=== PATIENT | male | born 1950 | race Caucasian/White ===

== ENCOUNTER 2022-01-10 23:45 | Observation (INO) | payer MEDICARE, OTHER ==
--- NOTE | 2022-01-11 00:18 | ED ---
Altered Mental Status HPI - General Chief Complaint: Altered Mental Status Stated Complaint: AMS, covid +, fever Source: patient, family Mode of arrival: ambulatory Limitations: no limitations - Related Data Home Medications Medication Instructions Recorded Confirmed Aspirin 81 mg PO DAILY 12/15/14 12/15/14 Cialis(Dose Unknown) 1 tab PO DIRECTED PRN 12/15/14 12/15/14 amLODIPine BESYLATE [Norvasc] 5 mg PO DAILY 12/15/14 12/15/14 Allergies Allergy/AdvReac Type Severity Reaction Status Date / Time No Known Allergies Allergy Verified 01/10/22 23:56 Review of Systems ROS Statement: Those systems with pertinent positive or pertinent negative responses have been documented in the HPI. ROS Other: All systems not noted in ROS Statement are negative. Past Medical History Past Medical History: Hypertension, Sleep Apnea/CPAP/BIPAP Additional Past Medical History / Comment(s): gout History of Any Multi-Drug Resistant Organisms: None Reported Past Surgical History: Orthopedic Surgery Additional Past Surgical History / Comment(s): ORIF rt wrist Past Anesthesia/Blood Transfusion Reactions: Unable to Obtain Past Psychological History: No Psychological Hx Reported Smoking Status: Never smoker Past Alcohol Use History: Occasional Past Drug Use History: None Reported - Past Family History Father Family Medical History: Cancer General Exam Limitations: no limitations Course Vital Signs 01/10/22 23:50 Temperature 98.9 F Pulse Rate 88 Respiratory 20 Rate Blood Pressure 171/76 O2 Sat by Pulse 99 Oximetry Medical Decision Making - Lab Data Result diagrams: 01/11/22 00:44 01/11/22 00:44 Lab Results 01/11/22 01/11/22 01/11/22 Range/Units 00:44 00:44 00:44 WBC 9.9 (3.8-10.6) k/uL RBC 4.94 (4.30-5.90) m/uL Hgb 16.0 (13.0-17.5) gm/dL Hct 47.2 (39.0-53.0) % MCV 95.4 (80.0-100.0) fL MCH 32.3 (25.0-35.0) pg MCHC 33.9 (31.0-37.0) g/dL RDW 12.3 (11.5-15.5) % Plt Count 136 L (150-450) k/uL MPV 9.0 Neutrophils % 76 % Lymphocytes % 11 % Monocytes % 7 % Eosinophils % 3 % Basophils % 2 % Neutrophils # 7.5 (1.3-7.7) k/uL Lymphocytes # 1.1 (1.0-4.8) k/uL Monocytes # 0.7 (0-1.0) k/uL Eosinophils # 0.3 (0-0.7) k/uL Basophils # 0.2 (0-0.2) k/uL PT 10.3 (9.0-12.0) sec INR 0.9 (<1.2) APTT 27.6 (22.0-30.0) sec Sodium 136 L (137-145) mmol/L Potassium 4.3 (3.5-5.1) mmol/L Chloride 99 (98-107) mmol/L Carbon Dioxide 25 (22-30) mmol/L Anion Gap 12 mmol/L BUN 16 (9-20) mg/dL Creatinine 0.96 (0.66-1.25) mg/dL Est GFR (CKD-EPI)AfAm >90 (>60 ml/min/1.73 sqM) Est GFR (CKD-EPI)NonAf 80 (>60 ml/min/1.73 sqM) Glucose 138 H (74-99) mg/dL Plasma Lactic Acid Constantin (0.7-2.0) mmol/L Calcium 9.5 (8.4-10.2) mg/dL Total Bilirubin 0.8 (0.2-1.3) mg/dL AST 42 (17-59) U/L ALT 31 (4-49) U/L Alkaline Phosphatase 64 (38-126) U/L Lactate Dehydrogenase 434 (313-618) U/L Troponin I (0.000-0.034) ng/mL C-Reactive Protein 3.7 H (<1.0) mg/dL Total Protein 7.3 (6.3-8.2) g/dL Albumin 4.3 (3.5-5.0) g/dL Urine Color Urine Appearance (Clear) Urine pH (5.0-8.0) Ur Specific Sherwood (1.001-1.035) Urine Protein (Negative) Urine Glucose (UA) (Negative) Urine Ketones (Negative) Urine Blood (Negative) Urine Nitrite (Negative) Urine Bilirubin (Negative) Urine Urobilinogen (<2.0) mg/dL Ur Leukocyte Esterase (Negative) 01/11/22 01/11/22 01/11/22 Range/Units 00:44 00:44 03:03 WBC (3.8-10.6) k/uL RBC (4.30-5.90) m/uL Hgb (13.0-17.5) gm/dL Hct (39.0-53.0) % MCV (80.0-100.0) fL MCH (25.0-35.0) pg MCHC (31.0-37.0) g/dL RDW (11.5-15.5) % Plt Count (150-450) k/uL MPV Neutrophils % % Lymphocytes % % Monocytes % % Eosinophils % % Basophils % % Neutrophils # (1.3-7.7) k/uL Lymphocytes # (1.0-4.8) k/uL Monocytes # (0-1.0) k/uL Eosinophils # (0-0.7) k/uL Basophils # (0-0.2) k/uL PT (9.0-12.0) sec INR (<1.2) APTT (22.0-30.0) sec Sodium (137-145) mmol/L Potassium (3.5-5.1) mmol/L Chloride (98-107) mmol/L Carbon Dioxide (22-30) mmol/L Anion Gap mmol/L BUN (9-20) mg/dL Creatinine (0.66-1.25) mg/dL Est GFR (CKD-EPI)AfAm (>60 ml/min/1.73 sqM) Est GFR (CKD-EPI)NonAf (>60 ml/min/1.73 sqM) Glucose (74-99) mg/dL Plasma Lactic Acid Constantin 0.7 (0.7-2.0) mmol/L Calcium (8.4-10.2) mg/dL Total Bilirubin (0.2-1.3) mg/dL AST (17-59) U/L ALT (4-49) U/L Alkaline Phosphatase (38-126) U/L Lactate Dehydrogenase (313-618) U/L Troponin I <0.012 (0.000-0.034) ng/mL C-Reactive Protein (<1.0) mg/dL Total Protein (6.3-8.2) g/dL Albumin (3.5-5.0) g/dL Urine Color Yellow Urine Appearance Clear (Clear) Urine pH 5.0 (5.0-8.0) Ur Specific Sherwood 1.019 (1.001-1.035) Urine Protein Negative (Negative) Urine Glucose (UA) Negative (Negative) Urine Ketones Negative (Negative) Urine Blood Negative (Negative) Urine Nitrite Negative (Negative) Urine Bilirubin Negative (Negative) Urine Urobilinogen <2.0 (<2.0) mg/dL Ur Leukocyte Esterase Negative (Negative) Disposition Clinical Impression: Altered mental status, Weakness, TIA (transient ischemic attack) Disposition: ADMITTED IP TO THIS HOSP Condition: Good Referrals: Dacia Rousseau DO [REFERRING] - 1-2 days
[2022-01-11 00:52] LABS: Basophils # (A) 0.2 k/uL (0-0.2); Basophils % (A) 2 %; Eosinophils # (A) 0.3 k/uL (0-0.7); Eosinophils % (A) 3 %; HCT 47.2 % (39.0-53.0); Lymphocytes # (A) 1.1 k/uL (1.0-4.8); Lymphocytes % (A) 11 %; MCH 32.3 pg (25.0-35.0); MCHC 33.9 g/dL (31.0-37.0); MCV 95.4 fL (80.0-100.0); Monocytes # (A) 0.7 k/uL (0-1.0); Monocytes % (A) 7 %; Neutrophils # (A) 7.5 k/uL (1.3-7.7); Neutrophils % (A) 76 %; Platelet Count 136 k/uL (150-450); RBC 4.94 m/uL (4.30-5.90); RDW 12.3 % (11.5-15.5); WBC 9.9 k/uL (3.8-10.6)
[2022-01-11 01:07] LABS: INR 0.9 (<1.2); Partial Thromboplastin Time 27.6 sec (22.0-30.0); Prothrombin Time 10.3 sec (9.0-12.0)
[2022-01-11 01:08] LABS: ALT 31 U/L (4-49); AST 42 U/L (17-59); African American GFR (CKD) >90 (>60 ml/min/1.73 sqM); Albumin 4.3 g/dL (3.5-5.0); Alkaline Phosphatase 64 U/L (38-126); Anion Gap 12 mmol/L; Blood Urea Nitrogen 16 mg/dL (9-20); C Reactive Protein 3.7 mg/dL (<1.0); Calcium 9.5 mg/dL (8.4-10.2); Carbon Dioxide 25 mmol/L (22-30); Chloride 99 mmol/L (98-107); Glucose 138 mg/dL (74-99); LDH 434 U/L (313-618); Non-African American GFR(CKD) 80 (>60 ml/min/1.73 sqM); Potassium 4.3 mmol/L (3.5-5.1); Sodium 136 mmol/L (137-145); Total Bilirubin 0.8 mg/dL (0.2-1.3); Total Protein 7.3 g/dL (6.3-8.2)
--- NOTE | 2022-01-11 01:51 | XR ---
EXAMINATION TYPE: XR chest 2V DATE OF EXAM: 01/11/2022 COMPARISON: NONE HISTORY: Confusion TECHNIQUE: 2 views FINDINGS: Heart and mediastinum are normal. Lungs are clear. Diaphragm is normal. Bony thorax appears normal. IMPRESSION: Normal chest.
[2022-01-11 03:17] LABS: Appearance,Urine Clear (Clear); Bilirubin,Urine Negative (Negative); Blood,Urine Negative (Negative); Color,Urine Yellow; Glucose,Urine (UA) Negative (Negative); Ketones,Urine Negative (Negative); Leukocyte Esterase,Urine Negative (Negative); Nitrite,Urine Negative (Negative); Protein,Urine Negative (Negative); Specific Gravity,Urine 1.019 (1.001-1.035); Urobilinogen,Urine <2.0 mg/dL (<2.0)
[2022-01-11] MEDS ORDERED: NALOXONE 0.4 MG/ML 1 ML VIAL IV PRN (04:16)
[2022-01-11] MEDS ORDERED: MORPHINE SULFATE 4 MG/ML SYRINGE IV PRN (04:16)
[2022-01-11] MEDS ORDERED: ONDANSETRON 4 MG/2 ML VIAL IVP PRN (04:16)
[2022-01-11] MEDS ORDERED: ATORVASTATIN 80 MG TAB PO SCH (05:28)
--- NOTE | 2022-01-11 05:29 | P.HPIM ---
History of Present Illness H&P Date: 01/11/22 The patient is a 71-year-old male with a PMH of hypertension who was brought into the emergency room by family members for confusion and recent diagnosis of COVID. The patient reports that he was in his usual state of health until about 2 days ago when he developed a mild nonproductive cough. The family was subsequently going for a trip when they noticed that the patient had appeared confused. The history was supplemented by the patient's at the bedside. The patient's denied noticing weakness, impaired gait, facial droop, slurring of speech. She reports that she checked him for COVID last night and that multiple tests were positive. The reports that the patient had retur alejandro to baseline in 3-4 hours. The patient reports a mild nonproductive cough but otherwise denied chest discomfort, shortness of breath, fever, chills. Review of systems: Pertinent positives and negatives as discussed in HPI, a complete review of systems was performed and all other systems are negative. Physical examination: General: non toxic, no distress, appears at stated age, obese Derm: no unusual rashes/lesions, warm Head: atraumatic, normocephalic, symmetric Eyes: EOMI, no lid lag, anicteric sclera, pupils equal round reactive to light ENT: Nose and ears atraumatic Neck: No cervical lymphadenopathy, trachea midline, supple Mouth: no lip lesion, mucus membranes moist Cardiovascular: S1S2 reg, no murmur, positive dorsalis pedis pulse bilateral, no edema Lungs: CTA bilateral, no rhonchi, no rales, no accessory muscle use Abdominal: soft, nontender to palpation, no guarding Ext: muscle strength 5 out of 5 in all 4 extremities grossly, no gross muscle atrophy, no contractures, Neuro: CN II-XI grossly intact, no gross focal neuro deficits Psych: Alert, oriented, appropriate affect Assessment/plan Confusion, TIA vs toxic encephalopathy secondary to COVID infection -Neurology consulted -Neuro checks -Continue with aspirin, statin -Neurology consulted -Echocardiogram -Carotid Doppler COVID pneumonia not requiring oxygen therapy at this time -Continue to monitor DVT prophylaxis -Heparin subcu The patient is admitted with an anticipated less than 2 midnight stay for e valuation of TIA CODE STATUS: Full Code Discussed with: Patient Anticipated discharge date: in am Anticipated discharge place: Home Past Medical History Past Medical History: Hypertension, Sleep Apnea/CPAP/BIPAP Additional Past Medical History / Comment(s): gout History of Any Multi-Drug Resistant Organisms: None Reported Past Surgical History: Orthopedic Surgery Additional Past Surgical History / Comment(s): ORIF rt wrist Past Anesthesia/Blood Transfusion Reactions: Unable to Obtain Past Psychological History: No Psychological Hx Reported Smoking Status: Never smoker Past Alcohol Use History: Occasional Past Drug Use History: None Reported - Past Family History Father Family Medical History: Cancer Medications and Allergies Home Medications Medication Instructions Recorded Confirmed Type Aspirin 81 mg PO DAILY 12/15/14 12/15/14 History Cialis(Dose Unknown) 1 tab PO DIRECTED PRN 12/15/14 12/15/14 History amLODIPine BESYLATE [Norvasc] 5 mg PO DAILY 12/15/14 12/15/14 History Allergies Allergy/AdvReac Type Severity Reaction Status Date / Time No Known Allergies Allergy Verified 01/10/22 23:56 Physical Exam Vitals: Vital Signs Temp Pulse Resp BP Pulse Ox 01/11/22 05:25 88 15 144/68 98 01/10/22 23:50 98.9 F 88 20 171/76 99 Intake and Output 01/10/22 01/10/22 01/11/22 14:59 22:59 06:59 Other: Weight 104.326 kg Results CBC & Chem 7: 01/11/22 00:44 01/11/22 00:44 Labs: Abnormal Lab Results - Last 24 Hours (Table) 01/11/22 01/11/22 Range/Units 00:44 00:44 Plt Count 136 L (150-450) k/uL Sodium 136 L (137-145) mmol/L Glucose 138 H (74-99) mg/dL C-Reactive Protein 3.7 H (<1.0) mg/dL
[2022-01-11] MEDS ORDERED: HEPARIN SODIUM,PORCINE/PF 5,000 UNIT/0.5 ML SYRINGE SQ SCH (08:00)
[2022-01-11] MEDS: SODIUM CHLORIDE 0.9% 1,000 ML IV SCH ×2 (08:12→14:18)
--- NOTE | 2022-01-11 08:38 | US ---
EXAMINATION TYPE: US carotid duplex BILAT DATE OF EXAM: 01/11/2022 COMPARISON: NONE CLINICAL HISTORY: 71-year-old male TIA. TECHNIQUE: Carotid duplex ultrasound examination. Indirect Doppler criteria was utilized. FINDINGS: EXAM MEASUREMENTS: RIGHT: Peak Systolic Velocity (PSV) cm/sec ----- Right CCA: 87.7 ----- Right ICA: 79.7 ----- Right ECA: 111.0 ICA/CCA ratio: 0.9 RIGHT: End Diastole cm/sec ----- Right CCA: 16.2 ----- Right ICA: 20.0 ----- Right ECA: 14.0 LEFT: Peak Systolic Velocity (PSV) cm/sec ----- Left CCA: 79.9 ----- Left ICA: 73.3 ----- Left ECA: 106.0 ICA/CCA ratio: 0.9 LEFT: End Diastole cm/sec ----- Left CCA: 16.0 ----- Left ICA: 19.8 ----- Left ECA: 18.5 VERTEBRALS (direction of flow): Right Vertebral: Antegrade Left Vertebral: Antegrade Rhythm: Normal Corporate Communications Manager notes: No significant stenosis, right distal ICA not seen due to deep vessel IMPRESSION: Limited visualization of the distal right ICA. However, along the visualized portions, no hemodynamic ally significant internal carotid artery stenosis is appreciated on either side. Criteria for Assigning % of Stenosis / Diameter reduction (Estimation based on the indirect measurements of the internal carotid artery velocities (ICA PSV). 1. Normal (no stenosis)=ICA PSV < 125 cm/s: ratio < 2.0: ICA EDV<40 cm/s. 2. Less than 50% stenosis=ICA PSV < 125 cm/s: ratio < 2.0: ICA EDV<40 cm/s. 3. 50 to 69% stenosis=ICA PSV of 125 to 230 cm/s: ration 2.0 ? 4.0: ICA EDV 40-100 cm/s. 4. Greater than 70% stenosis to near occlusion= ICA PSV > 230 cm/s: ratio > 4.0: ICA EDV > 100 cm/s. 5. Near occlusion= ICA PSV velocities may be low or undetectable: variable ratio and ICA EDV. 6. Total occlusion=unable to detect flow.
[2022-01-11] MEDS ORDERED: ASPIRIN 325 MG TAB PO SCH (09:00)
[2022-01-11] MEDS ORDERED: amLODIPine 5 MG TAB PO SCH (13:00)
[2022-01-11] MEDS ORDERED: ASPIRIN 81 MG PO SCH (13:00)
--- NOTE | 2022-01-11 14:22 | P.CNNES ---
History of Present Illness Consult date: 01/11/22 Reason for Consult: acute mental status changes History of Present Illness: The patient is a 71-year-old male who is seen in neurologic consultation on January 11, 2022, via teleneurology. History is obtained from the chart, the patient and his who is present at the bedside at the time of the evaluation. The patient was reportedly brought into the emergency department because of confusion. The patient was reportedly diagnosed with Covid 19. The patient himself denies being confused. He reports that he got his directions turned around and was slightly lost. He says he was following his son along a usual route, to [place] [facility] The patient's , who does not appear to have been present at the time, reports that their son stated that the patient was found going the wrong direction. He reportedly was ahead of the son and was expected to arrive at the [facility] first. Apparently the patient's son arrived at the [facility] and waited for his father for a while. He then began to look for his father and found him going the wrong direction. The patient was reportedly confused. There was no reported difficulty with dysarthria or expressive aphasia. There is no reported lateralizing weakness. In regards to his Covid 19 infection, the patient reports having neck pain, chest pain and fever. He reports that today he feels "ready to go home". CT scan of the brain, performed in the emergency department revealed no signs of acute hemorrhage or infarct. CT angiogram was not performed. The patient has no history of stroke. Review of Systems Negative except for that noted in the history of present illness Past Medical History Past Medical History: Hypertension, Sleep Apnea/CPAP/BIPAP Additional Past Medical History / Comment(s): gout History of Any Multi-Drug Resistant Organisms: None Reported Past Surgical History: Orthopedic Surgery Additional Past Surgical History / Comment(s): ORIF rt wrist Past Anesthesia/Blood Transfusion Reactions: Unable to Obtain Past Psychological History: No Psychological Hx Reported Smoking Status: Never smoker Past Alcohol Use History: Occasional Past Drug Use History: None Reported - Past Family History Father Family Medical History: Cancer Medications and Allergies Home Medications Medication Instructions Recorded Confirmed Type Aspirin 81 mg PO DAILY 12/15/14 01/11/22 History amLODIPine BESYLATE [Norvasc] 5 mg PO DAILY 12/15/14 01/11/22 History tadalafiL [Cialis] 20 mg PO DAILY PRN 01/11/22 01/11/22 History Allergies Allergy/AdvReac Type Severity Reaction Status Date / Time No Known Allergies Allergy Verified 01/11/22 10:50 Physical Examination - Vital Signs Vital Signs: Vital Signs Temp Pulse Resp BP Pulse Ox 01/11/22 05:25 88 15 144/68 98 01/10/22 23:50 98.9 F 88 20 171/76 99 Intake and Output 01/10/22 01/11/22 01/11/22 22:59 06:59 14:59 Other: Weight 104.326 kg Gen.: The patient is seated in the bedside chair. He is well-nourished, well- developed and in no acute distress HEENT: Head is atraumatic, normocephalic. Fundus not visualized. There is no scleral icterus. Mucous membranes are moist. Neck: Supple, without carotid bruits Heart: Regular rate and rhythm Lungs: Clear to auscultation Extremities: Without edema line neurological examination Mental status: The patient is awake, alert and oriented 3. His speech is clear. There is no dysarthria or aphasia. Patient is able to follow two-step commands. There is no right/left confusion. Cranial nerves: Pupils are equal at 2 mm and reactive. Visual camp are full to confrontation. Extraocular movements are intact. There is no nystagmus. Facial sensations intact. There is no facial asymmetry. Hearing is grossly intact. Uvula and palate are midline. Shoulder shrug is symmetric. Tongue protrudes midline. Motor: Strength is 5/5 throughout. Coordination: Finger to nose and rapid alternating movements are intact. Sensation: Grossly intact to light touch throughout Deep tendon reflexes: 2+/4+ throughout. Gait: Not assessed Results - Laboratory Findings CBC and BMP: 01/11/22 00:44 01/11/22 00:44 Abnormal Lab Findings: Abnormal Labs 01/11/22 01/11/22 01/11/22 00:44 00:44 06:50 Plt Count 136 L Sodium 136 L Glucose 138 H C-Reactive Protein 3.7 H Coronavirus (PCR) Detected A Assessment and Plan Assessment: 1. Transient, acute mental status changes in a patient with recent diagnosis of Covid 19 infection-possibly related to this versus cerebral ischemia (doubt) 2. Plan: 1. CT angiogram of the head and neck to rule out stenosis or occlusion 2. MRI of brain to rule out stroke or mass as an etiology for confusion 3. 2-D echocardiogram 4. Laboratory evaluation including lipid panel, hemoglobin A1c and TSH 5. PT, OT and speech therapy consultations Thank you for allowing us to participate in the care of this patient Time with Patient: Greater than 30 (spent 40 minutes with patient via telemedicine)
--- NOTE | 2022-01-11 15:14 | CT ---
EXAMINATION TYPE: CT head without contrast CT angio head neck DATE OF EXAM: 01/11/2022 COMPARISON: None HISTORY: 71-year-old male TIA, new onset confusion TECHNIQUE: CT of the head without contrast. Coronal and sagittal reconstructions performed. Subsequen t axial scanning of the head and neck with IV Contrast, patient injected with 65 ML mL of Isovue 370. Coronal and sagittal MIP reconstructions performed. 3-D reconstructions generated on a dedicated [employer] workstation. CT DLP: 1922.5 mGycm Automated exposure control for dose reduction was used. FINDINGS: CT HEAD WITHOUT CONTRAST: Small air-fluid level left maxillary sinus. Scattered mild mucosal thickening throughout the paranasa l sinuses. Mastoid air cells well pneumatized. Mild ventriculomegaly likely secondary to central cerebral atrophy. Bull ratio calculated at 0.39. No evidence for acute intracranial hemorrhage, acute ischemic change, mass, mass effect, midline shif t, or extra-axial fluid collection. No effacement of cerebral sulci and basal subarachnoid cisterns. Manriquez-white matter differentiation is maintained. CTA NECK: Portable and configuration to the aortic arch. Mild atherosclerotic calcification narrowing the orig in of the left vertebral artery. The right vertebral artery slightly more dominant but both vessels a re otherwise patent throughout their course. Right common carotid artery is patent. There is mild atherosclerotic plaque and calcification within the right carotid bulb causing mild, le ss than 25% narrowing by NASCET criteria. Left common carotid artery is patent. Mild atherosclerotic plaque and calcification proximal small right RITU with mild, less than 25% narro wing just above the level of the carotid bulb. There is mild bilateral palatine tonsillar hypertrophy with left-sided calcifications suggesting sequ jarvis of prior infection. Bilateral lingual tonsillar hypertrophy also noted. CTA HEAD: Nondominant left vertebral artery. 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 Hypoplastic A1 segment right anterior cerebral artery also noted. The internal carotid arteries and remainder of the anterior circulation otherwise patent. No aneurysmal change is seen. The dural venous sinuses are patent. Some venous contamination is noted . IMPRESSION: 1. HEAD: MILD TO MODERATE HYDROCEPHALUS, BULL RATIO CALCULATED AT 0.39. CORRELATE TO EXCLUDE A COMPO NENT OF NPH. OTHERWISE, NO ACUTE INTRACRANIAL ABNORMALITY SEEN. 2. 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 HYPOPLASTIC A1 SEGMENT RIGHT RITU. THERE IS NO LARGE VESSEL INTRACRANIAL ARTERIAL OCCLUSION, SIG NIFICANT STENOSIS, OR ANEURYSMAL CHANGE SEEN. 3. ANGIOGRAPHY NECK: MILD, LESS THAN 25% PROXIMAL ICA STENOSIS ON EITHER SIDE. NO HEMODYNAMICALLY SIG NIFICANT STENOSIS. DOMINANT RIGHT VERTEBRAL ARTERY. THERE IS MILD NARROWING AT THE ORIGIN OF THE LEFT VERTEBRAL ARTERY.
--- NOTE | 2022-01-11 15:35 | CA ---
Transthoracic Echo Report Name: Lawrence Estrada Age: 71 Gender: M : 1950 Exam Date: 01/11/2022 08:38 Exam Location: [facility] Ht (in): 63 Wt (lb): 230 Ordering Physician: Allyson Figueroa MD Attending/Referring Phys: Resolution Manager Shannan Box RDCS Procedure CPT: Indications: tia Cardiac Hx: Technical Quality: Technically difficult study Contrast 1: Lumason Total Dose (mL): 4 Contrast 2: Total Dose (mL): MEASUREMENTS (Male / Female) Normal Values 2D ECHO LV Diastolic Diameter PLAX 4.4 cm 4.2 - 5.9 / 3.9 - 5.3 cm LV Systolic Diameter PLAX 2.0 cm IVS Diastolic Thickness 1.6 cm 0.6 - 1.0 / 0.6 - 0.9 cm LVPW Diastolic Thickness 1.5 cm 0.6 - 1.0 / 0.6 - 0.9 cm LV Relative Wall Thickness 0.7 RV Internal Dim ED PLAX 2.4 cm LA Volume 57.7 cm??? 18 - 58 / 22 - 52 cm??? M-MODE Aortic Root Diameter MM 2.9 cm LA Systolic Diameter MM 4.6 cm LA Ao Ratio MM 1.6 AV Cusp Separation MM 2.1 cm DOPPLER AV Peak Velocity 132.9 cm/s AV Peak Gradient 7.1 mmHg LVOT Peak Velocity 92.4 cm/s LVOT Peak Gradient 3.4 mmHg MV Area PHT 3.3 cm??? Mitral E Point Velocity 73.2 cm/s Mitral A Point Velocity 87.2 cm/s Mitral E to A Ratio 0.8 MV Deceleration Time 232.2 ms TR Peak Velocity 197.4 cm/s TR Peak Gradient 15.6 mmHg Right Ventricular Systolic Press 20.6 mmHg FINDINGS Left Ventricle Moderately increased left ventricular wall thickness. Normal left ventricular systolic function with no obvious regional wall motion abnormalities. Left ventricular ejection fraction is estimated at 55-60 %. Right Ventricle Normal right ventricular size. Right Atrium Normal right atrial size. Left Atrium Normal left atrial size. Mitral Valve Mitral annular calcification. Mild mitral regurgitation. Aortic Valve No aortic valve stenosis or regurgitation. Tricuspid Valve Mild tricuspid regurgitation.structurally normal tricuspid valve. Pulmonic Valve Pulmonic valve not well visualized. Pericardium No pericardial effusion. Aorta Normal size aortic root and proximal ascending aorta. CONCLUSIONS Technically difficult study. Normal size and systolic function Mild mitral and tricuspid regurgitation Previewed by: Dr. Virgilio Edmonds MD (Electronically Signed) Final Date: 11 January 2022 15:35
[2022-01-11 16:12] VITALS: BP 158/85; PULSE 61; TEMP 96.6
[2022-01-11 16:37] VITALS: RESP 18
--- NOTE | 2022-01-11 16:51 | P.DS ---
Providers Date of admission: 01/11/22 04:16 Expected date of discharge: 01/11/22 Attending physician: Allyson Figueroa MD Consults: 01/11/22 04:16 Consult Physician Routine Consulting Provider: Melissa Jaimes Consult Reason/Comments: ams Do you want consulting provider notified?: Yes Primary care physician: [facility] Course: The patient is a 71-year-old male with a PMH of hypertension who was brought into the emergency room by family members for confusion and recent diagnosis of COVID. The patient reports that he was in his usual state of health until about 2 days ago when he developed a mild nonproductive cough. The family was subsequently going for a trip when they noticed that the patient had appeared confused. The history was supplemented by the patient's at the bedside. The patient's denied noticing weakness, impaired gait, facial droop, slurring of speech. She reports that she checked him for COVID last night and that multiple tests were positive. The reports that the patient had returned to baseline in 3-4 hours. The patient reports a mild nonproductive cough but otherwise denied chest discomfort, shortness of breath, fever, chills. Neurology was consulted. CT head was negative for acute CVA. However, CT head showed mild to moderate hydrocephalus, correlate to exclude a component of NPH. 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 Echocardiogram showed EF of 55-60% with moderate LVH and no regional wall motion abnormalities. Neurology recommended MRI brain which is unable to be done during this hospitalization. Patient was seen and examined on 01/11/2022. He reported complete resolution of his symptoms. There is a family member at bedside at stated that patient was back to baseline. They did not want to wait until Thursday to obtain MRI brain. The case was discussed with Veronika LEON and Dr. Bowman who reported that MRI brain could be done in the outpatient setting. Patient be discharged home on aspirin 81 mg by mouth and Lipitor 80 mg at bedtime. He is advised to follow-up with his PCP within 1-2 days of discharge. He is advised to obtain MRI brain through his PCP. Patient and family member verbalized understanding of the plan. General: [non toxic], [no distress], [appears at stated age] Derm: [warm], [dry] Head: [atraumatic], [normocephalic], [symmetric] Eyes: [EOMI], [no lid lag], [anicteric sclera] Mouth: [no lip lesion], [mucus membranes moist] Cardiovascular: [S1S2 reg], [no murmur] Lungs: [CTA bilateral], [no rhonchi, no rales] , [no accessory muscle use] Ext: [no gross muscle atrophy], [no edema], [no contractures] Neuro: [no focal neuro deficits] Psych: [Alert], [oriented], [appropriate affect] Discharge diagnosis: Confusion, less likely TIA more likely toxic encephalopathy secondary to COVID- 19 infection COVID-19 pneumonia not requiring oxygen therapy at this time. Pertinent Studies: Chest x-ray Carotid Doppler Echocardiogram CT brain CTA head and neck Patient Condition at Discharge: Good Plan - Discharge Summary New Discharge Prescriptions: New Atorvastatin [Lipitor] 80 mg PO HS #30 tab Continue amLODIPine BESYLATE [Norvasc] 5 mg PO DAILY Aspirin 81 mg PO DAILY tadalafiL [Cialis] 20 mg PO DAILY PRN PRN Reason: E.D. Discharge Medication List Aspirin 81 mg PO DAILY 12/15/14 [History] amLODIPine BESYLATE [Norvasc] 5 mg PO DAILY 12/15/14 [History] Atorvastatin [Lipitor] 80 mg PO HS #30 tab 01/11/22 [Rx] tadalafiL [Cialis] 20 mg PO DAILY PRN 01/11/22 [History] Follow up Appointment(s)/Referral(s): Dacia Rousseau DO [REFERRING] - 1-2 days Activity/Diet/Wound Care/Special Instructions: Diet: Cardiac Follow-up with your PCP within 1-2 days of discharge. Follow-up with your PCP to obtain MRI brain. Take all medications as advised. Come back to the ED for worsening chest pain, shortness of breath, palpitations, lightheadedness, slurred speech, facial droop numbness/weakness/tingling of the extremities. Discharge Disposition: HOME SELF-CARE
== END 2022-01-11 18:46 | disposition home or self-care (01) ==
LOC: EC 23:45 → 6NMEDSUR 01-11 04:16 → 4SSUR 01-11 07:11 → 3SCARD 01-11 07:14
PROVIDERS: ADMIT Internal Medicine; ATTEND Internal Medicine
DX: U07.1 COVID-19 (principal); J12.82 Pneumonia due to coronavirus disease 2019; G91.9 Hydrocephalus, unspecified; R41.82 Altered mental status, unspecified; I10 Essential (primary) hypertension; G47.30 Sleep apnea, unspecified; M10.9 Gout, unspecified; Z98.890 Other specified postprocedural states; Z80.9 Family history of malignant neoplasm, unspecified; Z79.82 Long term (current) use of aspirin; Z79.899 Other long term (current) drug therapy
CPT/HCPCS: 96372; 99285; 36415; 93005; 80053; 83605; 83615; 84484; 85025; 85610; 85730; 86140; 81003; 87635; 71046; 93880; 70496; 70498; G0378 ×3; C8929; Q9950; Q9967; J1644; 93306

== ENCOUNTER → 2022-01-28 | Outpatient (CLI) | payer MEDICARE, OTHER ==
--- NOTE | 2022-01-28 16:08 | MR ---
EXAMINATION TYPE: MR brain wo con DATE OF EXAM: 01/28/2022 2:21 PM COMPARISON: CT head 01/11/2022.. CLINICAL INDICATION:Male, 71 years old with history of R41.0 CONFUSION; TECHNIQUE: Multi planar, multi sequence imaging was performed through the brain including: T1, T2, In version recovery, Diffusion weighted imaging, and gradient echo imaging. No gadolinium was given. FINDINGS: Motion artifact limits evaluation. The gamez-white junctions, ventricular system, and cisterns appear unremarkable. Patchy areas of high T2 signal intensity are seen within the periventricular white matter. Midline structures show no abn ormality. Diffusion-weighted imaging shows no evidence of restricted diffusion. The bone marrow signal is within normal limits. The paranasal sinuses demonstrate mild mucosal thicke anthony. The globes are unremarkable. IMPRESSION: 1. No evidence of intracranial mass or acute/subacute infarct. 2. Nonspecific white matter changes, likely secondary to small vessel ischemic disease.
== END | disposition home or self-care (01) ==
LOC: RADMRIMAIN 13:32
PROVIDERS: ATTEND Family Medicine
DX: R41.0 Disorientation, unspecified (principal)
CPT/HCPCS: 70551

== ENCOUNTER → 2022-10-21 | Outpatient (CLI) | payer MEDICARE ==
--- NOTE | 2022-10-22 09:57 | US ---
EXAMINATION TYPE: US bladder DATE OF EXAM: 10/21/2022 COMPARISON: NONE CLINICAL INDICATION: Male, 72 years old with history of R39.15 URGENCY OF URINATION; Pt states urinar y urgency TECHNIQUE: Multiple sonographic images of the bladder are obtained. FINDINGS: Mild trabeculation of the bladder wall. Mild median lobe hypertrophy changes of the prostate. Post Void Residual Volume: 37.6 mL Color Doppler performed to assess ureteral jets. Bilateral Jets seen: Yes Normal Post Void Residual (less than 50ml): Yes IMPRESSION: 1. Post void residual volume of 38 mL. 2. Trabeculated bladder wall correlate for chronic bladder obstruction.
== END | disposition home or self-care (01) ==
LOC: RADUSWWP 16:02
PROVIDERS: ATTEND Family Medicine
DX: R39.15 Urgency of urination (principal); N32.89 Other specified disorders of bladder
CPT/HCPCS: 76857

== ENCOUNTER → 2023-05-08 | Outpatient (CLI) | payer MEDICARE ==
--- NOTE | 2023-05-09 00:02 | EEG ---
ELECTROENCEPHALOGRAM REPORT CLINICAL HISTORY: This is a 72-year-old gentleman with reported memory issues. The video EEG is obtained to evaluate for seizure epileptiform activity. RELEVANT MEDICATION: Aricept. EEG TYPE: A routine 21-channel EEG with video using the 10/20 electrode placement system. DESCRIPTION: Wakefulness and drowsiness are obtained. During awake state, posterior-dominant rhythm consists of [id number] voltage of 9-10 hertz activity that is well modulated, well sustained. There is no physiological stage 2 sleep architecture. There is no focal slowing. Interictal and ictal is none. ACTIVATION PROCEDURE: Photic stimulation did not evoke a posterior driving response. There is no abnormality during the photic stimulation. Hyperventilation is not performed. CLINICAL INTERPRETATION: This is a normal routine EEG. There is no focal slowing, epileptiform discharges or seizure on the EEG. A normal routine EEG does not rule out underlying epilepsy. Clinical correlation is recommended. FAZAL / ERNESTO: [id number] /
[2023-05-12 07:42] LABS: Arsenic Whole Blood <3 mcg/L (<23); Mercury Whole Blood <5 mcg/L (<OR=10)
== END ==
LOC: NEUROMAIN 08:05
PROVIDERS: ATTEND Psychiatry & Neurology Neurology
DX: F03.90 Unspecified dementia, unspecified severity, without behavioral disturbance, psychotic disturbance, mood disturbance, and anxiety (principal); G93.89 Other specified disorders of brain
CPT/HCPCS: 82175; 82570; 82607; 83655; 83825; 84207; 84425; 84443; 84446; 86780; 95816

== ENCOUNTER → 2023-05-11 | Outpatient (CLI) | payer MEDICARE ==
--- NOTE | 2023-05-12 09:05 | MR ---
EXAMINATION TYPE: MR brain wo/w con DATE OF EXAM: 05/11/2023 3:10 PM COMPARISON: NONE HISTORY: Dementia, attention hippocampal size. CONTRAST: Patient received 10 mL intravenous Gadavist gadolinium contrast. Multiplanar and multispin-echo imaging of the brain was performed . Pre and post contrast enhanced i mages are obtained. The ventricles, basal cisterns and sulci overlying the cerebral convexities are mildly to moderately enlarged. There is evidence of mild periventricular white matter ischemic demyelination. Remote deep white matter insults are also noted. No acute edema is seen on diffusion weighted imaging. There is no evidence for midline shift or mass effect. Acute intracranial hemorrhage or extra-axial collection is not evident. No enhancing lesions are seen. The paranasal sinuses and mastoid air cells are well-aerated. IMPRESSION: Age-related atrophic and chronic small vessel ischemic change. No acute intracranial process at this time. No enhancing lesions are seen.
== END | disposition home or self-care (01) ==
LOC: RADMRIMAIN 14:18
PROVIDERS: ATTEND Psychiatry & Neurology Neurology
DX: F02.A4 Dementia in other diseases classified elsewhere, mild, with anxiety (principal); I67.82 Cerebral ischemia
CPT/HCPCS: 70553; A9585

== ENCOUNTER 2023-06-03 09:35 | Emergency (ER) | payer MEDICARE ==
[2023-06-03 09:44] VITALS: RESP 18
[2023-06-03] MEDS ORDERED: SODIUM CHLORIDE 0.9% 1,000 ML IV STA (10:06)
[2023-06-03] MEDS ORDERED: ONDANSETRON 4 MG/2 ML VIAL IVP STA (10:06)
[2023-06-03] MEDS ORDERED: KETOROLAC 15 MG/ML 1 ML VIAL IVP STA (10:06)
--- NOTE | 2023-06-03 10:16 | ED ---
General Adult HPI - General Chief complaint: Abdominal Pain Stated complaint: FLU like Symp Time Seen by Provider: 06/03/23 09:57 Source: patient, RN notes reviewed Mode of arrival: ambulatory Limitations: no limitations - History of Present Illness Initial comments: This is a 72-year-old male who presents to the emergency department for what he would describe as "flulike symptoms". States that for the last 4 days he has had headaches, nausea, and suprapubic pain. Denies any urinary symptoms. His states that he has had fevers as high as 101F. Denies any coughing, congestion, chest pain, or sick contacts. Additionally, over the last 2 days he has been constipated. States that he usually has a bowel movement each day. He has not taken any meen-[id number]-[id number] stool softeners. - Related Data Home Medications Medication Instructions Recorded Confirmed Aspirin 81 mg PO DAILY 12/15/14 01/11/22 amLODIPine BESYLATE [Norvasc] 5 mg PO DAILY 12/15/14 01/11/22 tadalafiL [Cialis] 20 mg PO DAILY PRN 01/11/22 01/11/22 Previous Rx's Medication Instructions Recorded Atorvastatin [Lipitor] 80 mg PO HS #30 tab 01/11/22 Ketorolac [Toradol] 10 mg PO Q6HR PRN #15 tab 06/03/23 Ondansetron Odt [Zofran Odt] 4 mg PO Q8HR PRN #15 tab 06/03/23 Allergies Allergy/AdvReac Type Severity Reaction Status Date / Time No Known Allergies Allergy Verified 06/03/23 09:43 Review of Systems ROS Statement: Those systems with pertinent positive or pertinent negative responses have been documented in the HPI. ROS Other: All systems not noted in ROS Statement are negative. Past Medical History Past Medical History: Hypertension, Sleep Apnea/CPAP/BIPAP Additional Past Medical History / Comment(s): gout History of Any Multi-Drug Resistant Organisms: None Reported Past Surgical History: Orthopedic Surgery Additional Past Surgical History / Comment(s): ORIF rt wrist Past Anesthesia/Blood Transfusion Reactions: Unable to Obtain Past Psychological History: No Psychological Hx Reported Smoking Status: Never smoker Past Alcohol Use History: Occasional Past Drug Use History: None Reported - Past Family History Father Family Medical History: Cancer General Exam Limitations: no limitations General appearance: alert, in no apparent distress Head exam: Present: atraumatic, normocephalic, normal inspection Respiratory exam: Present: normal lung sounds bilaterally. Absent: respiratory distress, wheezes, rales, rhonchi, stridor Cardiovascular Exam: Present: regular rate, normal rhythm, normal heart sounds. Absent: systolic murmur, diastolic murmur, rubs, gallop, clicks GI/Abdominal exam: Present: soft, normal bowel sounds. Absent: distended, tenderness, guarding, rebound, rigid Neurological exam: Present: alert, oriented X3, CN II-XII intact Psychiatric exam: Present: normal affect, normal mood Skin exam: Present: warm, dry, intact, normal color. Absent: rash Course Vital Signs 06/03/23 06/03/23 09:40 11:37 Temperature 97.8 F 97.9 F Pulse Rate 56 L 67 Respiratory 18 18 Rate Blood Pressure 147/76 160/69 O2 Sat by Pulse 99 97 Oximetry Medical Decision Making - Medical Decision Making This is a 72-year-old male who presents to the emergency department for fevers, nausea, and headaches. Was pt. sent in by a medical professional or institution? @ -No Did you speak to anyone other than the patient for history? @ -His provided the information about how high the fever has gotten. Did you review nursing and triage notes? @ -Yes, and I agree, it is accurate with regards to the patient's symptoms. Were old charts reviewed? @ -No Differential Diagnosis? @ -Differential Fever: Pneumonia, viral URI, endocarditis, myocarditis, pericarditis, otitis, sinusitis, peritonsillar Abscess, retropharyngeal Abscess, epiglottitis, peritonitis, appendicitis, Christiana cystitis, diverticulitis, hepatitis, colitis, UTI, PID, TOA, pyelonephritis, prostatitis, epididymitis, meningitis, encephalit is, pulmonary embolism, CVA, thyroid storm, pancreatitis, adrenal crisis, cavernous sinus thrombosis, this is not meant to be an all-inclusive list. EKG interpreted by me (3pts min.)? @ -Not obtained X-rays interpreted by me (1pt min.)? @ -KUB x-ray obtained. My interpretation identifies no evidence of large or small bowel loop dilation. CT interpreted by me (1pt min.)? @ -Not obtained U/S interpreted by me (1pt. min.)? @ -Not obtained What testing was considered but not performed? (CT, X-rays, U/S, labs)? Why? @ -Discussion of a CT scan of the abdomen/pelvis, however the patient declined because he felt better. What meds were considered but not given? Why? @ -None Did you discuss the management of the patient with other professionals? @ -No Did you reconcile home meds? @ -No Was smoking cessation discussed for >3mins.? @ -No Was critical care preformed (if so, how long)? @ -No Were there social determinants of health that impacted care today? How? (Homelessness, low income, unemployed, alcoholism, drug addiction, transportation, low edu. Level, literacy, decrease access to med. care, prison, rehab)? @ -No Was there de-escalation of care discussed even if they declined? (Discuss DNR or withdrawal of care, Hospice)? @ -No What co-morbidities impacted this encounter? (DM, HTN, Smoking, COPD, CAD, Cancer, CVA, Hep., AIDS, mental health diagnosis, sleep apnea, morbid obesity)? @ -HTN Was patient admitted / discharged? @ -Discharged. Lab work obtained revealing leukocytosis and was otherwise unremarkable. Urinalysis negative for signs of infection. COVID, influenza, and RSV testing were negative. KUB x-ray obtained demonstrating nonspecific bowel gas pattern without evidence for acute process. He remained afebrile in the [facility] department and did not have any abdominal tenderness on exam. Patient treated with IV fluids, Toradol, and Zofran and had significant relief in symptoms. Discussed with the patient that at his age, he is higher risk, and due to the fever with abdominal pain, I advised we proceed with a computed tomography scan of the abdomen and pelvis. However, patient declined because he felt better. He was given strict return parameters and advised to have close follow-up with his primary care provider. Prescription for Zofran and Toradol provided with dosing instructions reviewed. Patient discharged home in stable condition. Undiagnosed new problem with uncertain prognosis? @ -None Drug Therapy requiring intensive monitoring for toxicity (Heparin, Nitro, Insulin, Cardizem)? @ -None Were any procedures done? @ -None Diagnosis/symptom? @ -Nausea, constipation, headache Acute, or Chronic, or Acute on Chronic? @ -Acute Uncomplicated (without systemic symptoms) or Complicated (systemic symptoms)? @ -Uncomplicated Side effects of treatment? @ -None Exacerbation, Progression, or Severe Exacerbation] @ -Not applicable Poses a threat to life or bodily function? @ -Unlikely Return precautions reviewed in depth, the patient is instructed to return to the emergency department with any new, worsening, or concerning symptoms. Patient verbalized understanding. This case was discussed in detail with the attending ED physician, Dr. Chambers. Presentation, findings, and treatment plan discussed in detail as well. - Lab Data Result diagrams: 06/03/23 10:11 06/03/23 10:11 Lab Results 06/03/23 06/03/23 06/03/23 Range/Units 10:11 10:11 10:11 WBC 12.6 H (3.8-10.6) k/uL RBC 4.84 (4.30-5.90) m/uL Hgb 15.0 (13.0-17.5) gm/dL Hct 43.0 (39.0-53.0) % MCV 88.8 (80.0-100.0) fL MCH 31.1 (25.0-35.0) pg MCHC 35.0 (31.0-37.0) g/dL RDW 13.9 (11.5-15.5) % Plt Count 180 (150-450) k/uL MPV 8.7 Neutrophils % 84 % Lymphocytes % 9 % Monocytes % 5 % Eosinophils % 1 % Basophils % 1 % Neutrophils # 10.5 H (1.3-7.7) k/uL Lymphocytes # 1.2 (1.0-4.8) k/uL Monocytes # 0.6 (0-1.0) k/uL Eosinophils # 0.1 (0-0.7) k/uL Basophils # 0.1 (0-0.2) k/uL Sodium 139 (137-145) mmol/L Potassium 4.4 (3.5-5.1) mmol/L Chloride 101 (98-107) mmol/L Carbon Dioxide 28 (22-30) mmol/L Anion Gap 10 mmol/L BUN 14 (9-20) mg/dL Creatinine 0.76 (0.66-1.25) mg/dL Est GFR (CKD-EPI)AfAm >90 (>60 ml/min/1.73 sqM) Est GFR (CKD-EPI)NonAf >90 (>60 ml/min/1.73 sqM) Glucose 109 H (74-99) mg/dL Plasma Lactic Acid Constantin (0.7-2.0) mmol/L Calcium 9.7 (8.4-10.2) mg/dL Total Bilirubin 1.1 (0.2-1.3) mg/dL AST 28 (17-59) U/L ALT 23 (4-49) U/L Alkaline Phosphatase 73 (38-126) U/L Total Protein 7.6 (6.3-8.2) g/dL Albumin 4.2 (3.5-5.0) g/dL Urine Color Light Yellow Urine Appearance Clear (Clear) Urine pH 6.5 (5.0-8.0) Ur Specific Weston 1.018 (1.001-1.035) Urine Protein Negative (Negative) Urine Glucose (UA) Negative (Negative) Urine Ketones Negative (Negative) Urine Blood Negative (Negative) Urine Nitrite Negative (Negative) Urine Bilirubin Negative (Negative) Urine Urobilinogen <2.0 (<2.0) mg/dL Ur Leukocyte Esterase Negative (Negative) Influenza Type A (PCR) (Not Detectd) Influenza Type B (PCR) (Not Detectd) RSV (PCR) (Not Detectd) SARS-CoV-2 (PCR) (Not Detectd) 06/03/23 06/03/23 Range/Units 10:11 10:11 WBC (3.8-10.6) k/uL RBC (4.30-5.90) m/uL Hgb (13.0-17.5) gm/dL Hct (39.0-53.0) % MCV (80.0-100.0) fL MCH (25.0-35.0) pg MCHC (31.0-37.0) g/dL RDW (11.5-15.5) % Plt Count (150-450) k/uL MPV Neutrophils % % Lymphocytes % % Monocytes % % Eosinophils % % Basophils % % Neutrophils # (1.3-7.7) k/uL Lymphocytes # (1.0-4.8) k/uL Monocytes # (0-1.0) k/uL Eosinophils # (0-0.7) k/uL Basophils # (0-0.2) k/uL Sodium (137-145) mmol/L Potassium (3.5-5.1) mmol/L Chloride (98-107) mmol/L Carbon Dioxide (22-30) mmol/L Anion Gap mmol/L BUN (9-20) mg/dL Creatinine (0.66-1.25) mg/dL Est GFR (CKD-EPI)AfAm (>60 ml/min/1.73 sqM) Est GFR (CKD-EPI)NonAf (>60 ml/min/1.73 sqM) Glucose (74-99) mg/dL Plasma Lactic Acid Constantin 0.7 (0.7-2.0) mmol/L Calcium (8.4-10.2) mg/dL Total Bilirubin (0.2-1.3) mg/dL AST (17-59) U/L ALT (4-49) U/L Alkaline Phosphatase (38-126) U/L Total Protein (6.3-8.2) g/dL Albumin (3.5-5.0) g/dL Urine Color Urine Appearance (Clear) Urine pH (5.0-8.0) Ur Specific Weston (1.001-1.035) Urine Protein (Negative) Urine Glucose (UA) (Negative) Urine Ketones (Negative) Urine Blood (Negative) Urine Nitrite (Negative) Urine Bilirubin (Negative) Urine Urobilinogen (<2.0) mg/dL Ur Leukocyte Esterase (Negative) Influenza Type A (PCR) Not Detected (Not Detectd) Influenza Type B (PCR) Not Detected (Not Detectd) RSV (PCR) Not Detected (Not Detectd) SARS-CoV-2 (PCR) Not Detected (Not Detectd) - Radiology Data Radiology results: report reviewed, image reviewed Disposition Clinical Impression: Constipation, Headache, Nausea Disposition: HOME SELF-CARE Instructions (If sedation given, give patient instructions): Acute Headache (ED), Acute Nausea and Vomiting (ED) Additional Instructions: Return to the emergency department with any new, worsening, or concerning symptoms. Take the Toradol with Tylenol as needed for pain relief. If you choos e to take the Toradol, do not take any other anti-inflammatories such as ibuprofen, take one or the other. You can take the Zofran up to every 8 hours as needed for nausea and vomiting. Slowly advance your diet as tolerated and remain well hydrated. You can take over the counter stool softeners such as MiraLAX to help with the constipation as well. Follow up with your primary care provider in 1-2 days. Prescriptions: Ketorolac [Toradol] 10 mg PO Q6HR PRN #15 tab PRN Reason: Pain Ondansetron Odt [Zofran Odt] 4 mg PO Q8HR PRN #15 tab PRN Reason: Nausea And Vomiting Is patient prescribed a controlled substance at d/c from ED?: No Referrals: Ana Villatoro MD [Primary Care Provider] - 1-2 days
[2023-06-03 10:38] LABS: Basophils # (A) 0.1 k/uL (0-0.2); Basophils % (A) 1 %; Eosinophils # (A) 0.1 k/uL (0-0.7); Eosinophils % (A) 1 %; Lymphocytes # (A) 1.2 k/uL (1.0-4.8); Lymphocytes % (A) 9 %; MCH 31.1 pg (25.0-35.0); MCV 88.8 fL (80.0-100.0); Mean Platelet Volume 8.7; Monocytes # (A) 0.6 k/uL (0-1.0); Monocytes % (A) 5 %; Neutrophils # (A) 10.5 k/uL (1.3-7.7); Neutrophils % (A) 84 %; Platelet Count 180 k/uL (150-450); RBC 4.84 m/uL (4.30-5.90); RDW 13.9 % (11.5-15.5); WBC 12.6 k/uL (3.8-10.6)
[2023-06-03 10:42] LABS: Appearance,Urine Clear (Clear); Bilirubin,Urine Negative (Negative); Blood,Urine Negative (Negative); Color,Urine Light Yellow; Glucose,Urine (UA) Negative (Negative); Ketones,Urine Negative (Negative); Leukocyte Esterase,Urine Negative (Negative); Nitrite,Urine Negative (Negative); PH, Urine 6.5 (5.0-8.0); Protein,Urine Negative (Negative); Specific Gravity,Urine 1.018 (1.001-1.035); Urobilinogen,Urine <2.0 mg/dL (<2.0)
--- NOTE | 2023-06-03 10:59 | XR ---
EXAMINATION TYPE: XR KUB DATE OF EXAM: 06/03/2023 10:54 AM CLINICAL INDICATION:Male, 72 years old with history of abdominal pain; COMPARISON: 06/03/2023. TECHNIQUE: One radiographic view of the abdomen was obtained. FINDINGS: The bowel gas pattern is nonspecific without dilated loops of small or large bowel. There i s no evidence for organomegaly or pneumoperitoneum. The osseous structures are intact. No abnormal calcifications are present. Fecal material and gas are demonstrated throughout the colon and rectum. IMPRESSION: Nonspecific bowel gas pattern without radiographic evidence for acute process.
[2023-06-03 11:14] LABS: ALT 23 U/L (4-49); AST 28 U/L (17-59); African American GFR (CKD) >90 (>60 ml/min/1.73 sqM); Albumin 4.2 g/dL (3.5-5.0); Alkaline Phosphatase 73 U/L (38-126); Anion Gap 10 mmol/L; Blood Urea Nitrogen 14 mg/dL (9-20); Calcium 9.7 mg/dL (8.4-10.2); Carbon Dioxide 28 mmol/L (22-30); Chloride 101 mmol/L (98-107); Glucose 109 mg/dL (74-99); Non-African American GFR(CKD) >90 (>60 ml/min/1.73 sqM); Potassium 4.4 mmol/L (3.5-5.1); Sodium 139 mmol/L (137-145); Total Bilirubin 1.1 mg/dL (0.2-1.3); Total Protein 7.6 g/dL (6.3-8.2)
[2023-06-03] MEDS ORDERED: IBUPROFEN 600 MG STARTER PACK 4 TAB BTL PO STA (11:33)
[2023-06-03] MEDS ORDERED: ONDANSETRON 4 MG ODT STARTER PACK 2 TAB BTL PO STA (11:33)
[2023-06-03 12:06] VITALS: BP 160/69; PULSE 67; TEMP 97.9
== END 2023-06-03 11:54 | disposition home or self-care (01) ==
LOC: EC 09:35
DX: K59.00 Constipation, unspecified (principal); R51.9 Headache, unspecified; R11.0 Nausea; I10 Essential (primary) hypertension; Z20.822 Contact with and (suspected) exposure to COVID-19; Z79.82 Long term (current) use of aspirin; Z79.899 Other long term (current) drug therapy
CPT/HCPCS: 99284; 96374; 96375; 96361; 36415; 80053; 83605; 85025; 81003; 87636; 74018; J2405; J1885; S0119

== ENCOUNTER 2023-10-03 14:51 | Emergency (ER) | payer MEDICARE ==
[2023-10-03 15:46] VITALS: RESP 18
[2023-10-03 16:35] LABS: Basophils % (A) 0 %; Eosinophils # (A) 0.2 k/uL (0-0.7); Eosinophils % (A) 1 %; HGB 12.7 gm/dL (13.0-17.5); Lymphocytes # (A) 1.3 k/uL (1.0-4.8); Lymphocytes % (A) 11 %; MCH 28.6 pg (25.0-35.0); MCHC 32.5 g/dL (31.0-37.0); MCV 87.9 fL (80.0-100.0); Mean Platelet Volume 7.9; Monocytes # (A) 0.7 k/uL (0-1.0); Monocytes % (A) 6 %; Neutrophils # (A) 9.7 k/uL (1.3-7.7); Neutrophils % (A) 81 %; Platelet Count 210 k/uL (150-450); RBC 4.43 m/uL (4.30-5.90); RDW 14.2 % (11.5-15.5)
[2023-10-03 16:52] LABS: ALT 19 U/L (4-49); AST 28 U/L (17-59); African American GFR (CKD) >90 (>60 ml/min/1.73 sqM); Albumin 3.6 g/dL (3.5-5.0); Alkaline Phosphatase 85 U/L (38-126); Amylase 43 U/L (30-110); Anion Gap 5 mmol/L; Blood Urea Nitrogen 18 mg/dL (9-20); Calcium 9.6 mg/dL (8.4-10.2); Carbon Dioxide 29 mmol/L (22-30); Chloride 103 mmol/L (98-107); Glucose 93 mg/dL (74-99); Lipase 39 U/L (23-300); Non-African American GFR(CKD) 88 (>60 ml/min/1.73 sqM); Potassium 4.3 mmol/L (3.5-5.1); Sodium 137 mmol/L (137-145); Total Protein 7.3 g/dL (6.3-8.2)
--- NOTE | 2023-10-03 16:52 | ED ---
Abdominal Pain HPI - General Chief Complaint: Abdominal Pain Stated Complaint: Abd pain Time Seen by Provider: 10/03/23 16:18 Source: patient, family Mode of arrival: ambulatory Limitations: altered mental status - History of Present Illness Initial Comments: 72-year-old male presenting to the ED with complaints of abdominal pain. Patient reports that since June, has had intermittent abdominal pain which has been diffuse in nature. Reports that he saw his PCP for this, who started him on Pepcid which patient reports provided no significant relief. Over the last few days, patient reports pain seeming to worsen prompting presentation to the ED for further evaluation. Denies dysuria, hematuria, frequency, urgency, diarrhea, constipation, blood in the stool, melena, chest pain, shortness of breath, fever, chills, unexplained weight loss. No other complaints at this time. Patient's notes that the patient has some dementia. She does state that he is lost 20 pounds unexpectedly over the past few months. - Related Data Home Medications Medication Instructions Recorded Confirmed Aspirin 81 mg PO DAILY 12/15/14 01/11/22 amLODIPine BESYLATE [Norvasc] 5 mg PO DAILY 12/15/14 01/11/22 tadalafiL [Cialis] 20 mg PO DAILY PRN 01/11/22 01/11/22 Previous Rx's Medication Instructions Recorded Atorvastatin [Lipitor] 80 mg PO HS #30 tab 01/11/22 Ketorolac [Toradol] 10 mg PO Q6HR PRN #15 tab 06/03/23 Ondansetron Odt [Zofran Odt] 4 mg PO Q8HR PRN #15 tab 06/03/23 Acetaminophen Tab [Tylenol] 500 mg PO Q6H #30 tablet 10/03/23 Allergies Allergy/AdvReac Type Severity Reaction Status Date / Time No Known Allergies Allergy Verified 06/03/23 09:43 Review of Systems ROS Statement: Those systems with pertinent positive or pertinent negative responses have been documented in the HPI. ROS Other: All systems not noted in ROS Statement are negative. Past Medical History Past Medical History: Dementia, Hypertension, Sleep Apnea/CPAP/BIPAP Additional Past Medical History / Comment(s): gout History of Any Multi-Drug Resistant Organisms: None Reported Past Surgical History: Orthopedic Surgery Additional Past Surgical History / Comment(s): ORIF rt wrist Past Anesthesia/Blood Transfusion Reactions: Unable to Obtain Past Psychological History: No Psychological Hx Reported Smoking Status: Never smoker Past Alcohol Use History: Occasional Past Drug Use History: None Reported - Past Family History Father Family Medical History: Cancer General Exam Limitations: altered mental status General appearance: alert Eye exam: Present: normal appearance Neck exam: Present: normal inspection Respiratory exam: Present: normal lung sounds bilaterally Cardiovascular Exam: Present: regular rate GI/Abdominal exam: Present: soft, normal bowel sounds. Absent: distended, tenderness, guarding, rebound, rigid Extremities exam: Present: normal inspection Neurological exam: Present: alert, oriented X3 Skin exam: Present: warm, dry Course Vital Signs 10/03/23 10/03/23 15:31 17:35 Temperature 97.8 F Pulse Rate 68 58 L Respiratory 18 18 Rate Blood Pressure 142/79 131/76 O2 Sat by Pulse 100 Oximetry Medical Decision Making - Medical Decision Making Was pt. sent in by a medical professional or institution (, PA, DIRECTOR OF NEUROLOGY, urgent care, hospital, or [facility]...) When possible be specific @ -No Did you speak to anyone other than the patient for history (EMS, parent, family, police, friend...)? What history was obtained from this source @ -No Did you review nursing and triage notes (agree or disagree)? Why? @ -I reviewed and agree with nursing and triage notes Were old charts reviewed (outside hosp., previous admission, EMS record, old EKG, old radiological studies, urgent care reports/EKG's, [facility] records)? Report findings @ -No old charts were reviewed Differential Diagnosis (chest pain, altered mental status, abdominal pain women, abdominal pain men, vaginal bleeding, weakness, fever, dyspnea, syncope, headache, dizziness, GI bleed, back pain, seizure, CVA, palpatations, mental health, musculoskeletal)? @ -Differential Musculoskeletal Muscular strain, contusion, ligament sprain, fracture, arthritis, septic arthr itis, bursitis, cellulitis, muscle spasm, nerve compression, DVT, arterial occlusion, herpes zoster, electrolyte abnormality, tumor.... This is not meant to be in all inclusive list EKG interpreted by me (3pts min.). @ -EKG interpreted me showing a sinus rhythm at [address]-T wave changes. CO 171, QRS 85, QT/QTc 403/400. X-rays interpreted by me (1pt min.). @ -None CT interpreted by me (1pt min.). @ -CT abdomen pelvis interpreted me showing multiple hypodense hepatic masses, in the mid ascending colon segment with irregular peripheral wall thickening concerning for neoplasm, numerous large soft tissue densities within the me sentery as well as retroperitoneum consistent with lymphadenopathy, diffuse mesenteric edema, couple tiny nodules in the right lung base. U/S interpreted by me (1pt. min.). @ -None done What testing was considered but not performed or refused? (CT, X-rays, U/S, labs)? Why? @ -None What meds were considered but not given or refused? Why? @ -None Did you discuss the management of the patient with other professionals (professionals i.e. , PA, DIRECTOR OF NEUROLOGY, lab, RT, psych nurse, director of social work, flour tester, teacher, human resources officer, rn case mgr)? Give summary @ -Case discussed with Dr. Desai, who advises outpatient follow up Was smoking cessation discussed for >3mins.? @ -No Was critical care preformed (if so, how long)? @ -No Were there social determinants of health that impacted care today? How? (Homelessness, low income, unemployed, alcoholism, drug addiction, transportation, low edu. Level, literacy, decrease access to med. care, detention, rehab)? @ -No Was there de-escalation of care discussed even if they declined (Discuss DNR or withdrawal of care, Hospice)? DNR status @ -No What co-morbidities impacted this encounter? (DM, HTN, Smoking, COPD, CAD, Cancer, CVA, ARF, Chemo, Hep., AIDS, mental health diagnosis, sleep apnea, morbid obesity)? @ -None Was patient admitted / discharged? Hospital course, mention meds given and route, prescriptions, significant lab abnormalities, going to OR and other pertinent info. @ -Discharge 72-year-old male presented to the ED with complaints of diffuse abdominal pain since June seeming to worsen today. Laboratory studies reviewed. CBC CMP UA largely unremarkable. CT abdomen pelvis does show multiple findings concerning for neoplasm/metastasis. At this time pain is well-controlled. Patient tolerating oral intake. Patient discharged home in stable condition with referrals to GI and oncology. Discussed strict return precautions with the patient's who verbalized agreement. Undiagnosed new problem with uncertain prognosis? @ -No Drug Therapy requiring intensive monitoring for toxicity (Heparin, Nitro, Insulin, Cardizem)? @ -No Were any procedures done? @ -No Diagnosis/symptom? @ -Abdominal pain Acute, or Chronic, or Acute on Chronic? @ -Acute on chronic Uncomplicated (without systemic symptoms) or Complicated (systemic symptoms)? @ -Complicated Side effects of treatment? @ -No Exacerbation, Progression, or Severe Exacerbation? @ -No Poses a threat to life or bodily function? How? (Chest pain, USA, VT, pneumonia, PE, COPD, DKA, ARF, appy, cholecystitis, CVA, Diverticulitis, Homicidal, Suicidal, threat to staff... and all critical care pts) @ -Possibly however unlikely - Lab Data Result diagrams: 10/03/23 16:28 10/03/23 16:28 Lab Results 10/03/23 10/03/23 10/03/23 Range/Units 16:28 16:28 16:28 WBC 12.0 H (3.8-10.6) k/uL RBC 4.43 (4.30-5.90) m/uL Hgb 12.7 L (13.0-17.5) gm/dL Hct 39.0 (39.0-53.0) % MCV 87.9 (80.0-100.0) fL MCH 28.6 (25.0-35.0) pg MCHC 32.5 (31.0-37.0) g/dL RDW 14.2 (11.5-15.5) % Plt Count 210 (150-450) k/uL MPV 7.9 Neutrophils % 81 % Lymphocytes % 11 % Monocytes % 6 % Eosinophils % 1 % Basophils % 0 % Neutrophils # 9.7 H (1.3-7.7) k/uL Lymphocytes # 1.3 (1.0-4.8) k/uL Monocytes # 0.7 (0-1.0) k/uL Eosinophils # 0.2 (0-0.7) k/uL Basophils # 0.0 (0-0.2) k/uL Sodium 137 (137-145) mmol/L Potassium 4.3 (3.5-5.1) mmol/L Chloride 103 (98-107) mmol/L Carbon Dioxide 29 (22-30) mmol/L Anion Gap 5 mmol/L BUN 18 (9-20) mg/dL Creatinine 0.84 (0.66-1.25) mg/dL Est GFR (CKD-EPI)AfAm >90 (>60 ml/min/1.73 sqM) Est GFR (CKD-EPI)NonAf 88 (>60 ml/min/1.73 sqM) Glucose 93 (74-99) mg/dL Plasma Lactic Acid Constantin 0.8 (0.7-2.0) mmol/L Calcium 9.6 (8.4-10.2) mg/dL Total Bilirubin 1.0 (0.2-1.3) mg/dL AST 28 (17-59) U/L ALT 19 (4-49) U/L Alkaline Phosphatase 85 (38-126) U/L Total Protein 7.3 (6.3-8.2) g/dL Albumin 3.6 (3.5-5.0) g/dL Amylase 43 (30-110) U/L Lipase 39 (23-300) U/L Urine Color Urine Appearance (Clear) Urine pH (5.0-8.0) Ur Specific [place] (1.001-1.035) Urine Protein (Negative) Urine Glucose (UA) (Negative) Urine Ketones (Negative) Urine Blood (Negative) Urine Nitrite (Negative) Urine Bilirubin (Negative) Urine Urobilinogen (<2.0) mg/dL Ur Leukocyte Esterase (Negative) 10/03/23 Range/Units 18:13 WBC (3.8-10.6) k/uL RBC (4.30-5.90) m/uL Hgb (13.0-17.5) gm/dL Hct (39.0-53.0) % MCV (80.0-100.0) fL MCH (25.0-35.0) pg MCHC (31.0-37.0) g/dL RDW (11.5-15.5) % Plt Count (150-450) k/uL MPV Neutrophils % % Lymphocytes % % Monocytes % % Eosinophils % % Basophils % % Neutrophils # (1.3-7.7) k/uL Lymphocytes # (1.0-4.8) k/uL Monocytes # (0-1.0) k/uL Eosinophils # (0-0.7) k/uL Basophils # (0-0.2) k/uL Sodium (137-145) mmol/L Potassium (3.5-5.1) mmol/L Chloride (98-107) mmol/L Carbon Dioxide (22-30) mmol/L Anion Gap mmol/L BUN (9-20) mg/dL Creatinine (0.66-1.25) mg/dL Est GFR (CKD-EPI)AfAm (>60 ml/min/1.73 sqM) Est GFR (CKD-EPI)NonAf (>60 ml/min/1.73 sqM) Glucose (74-99) mg/dL Plasma Lactic Acid Constantin (0.7-2.0) mmol/L Calcium (8.4-10.2) mg/dL Total Bilirubin (0.2-1.3) mg/dL AST (17-59) U/L ALT (4-49) U/L Alkaline Phosphatase (38-126) U/L Total Protein (6.3-8.2) g/dL Albumin (3.5-5.0) g/dL Amylase (30-110) U/L Lipase (23-300) U/L Urine Color Yellow Urine Appearance Clear (Clear) Urine pH 5.5 (5.0-8.0) Ur Specific [place] 1.045 H (1.001-1.035) Urine Protein Negative (Negative) Urine Glucose (UA) Negative (Negative) Urine Ketones Negative (Negative) Urine Blood Negative (Negative) Urine Nitrite Negative (Negative) Urine Bilirubin Negative (Negative) Urine Urobilinogen <2.0 (<2.0) mg/dL Ur Leukocyte Esterase Negative (Negative) Disposition Clinical Impression: Abdominal pain Disposition: HOME SELF-CARE Condition: Good Additional Instructions: Please return to the Emergency Department if symptoms worsen or any other concerns. Please follow-up with your PCP and GI/oncology. Prescriptions: Acetaminophen Tab [Tylenol] 500 mg PO Q6H #30 tablet Is patient prescribed a controlled substance at d/c from ED?: No Referrals: Ana Villatoro MD [Primary Care Provider] - 1-2 days Gabe Byrne [STAFF PHYSICIAN] - 1-2 days Bianca Dc MD [STAFF PHYSICIAN] - 1-2 days Iris Rebollar MD [STAFF PHYSICIAN] - 1-2 days Time of Disposition: 21:32
[2023-10-03] MEDS: KETOROLAC 15 MG/ML 1 ML VIAL IVP STA (17:33)
[2023-10-03] MEDS: SODIUM CHLORIDE 0.9% 1,000 ML IV STA (17:35)
[2023-10-03 18:18] LABS: Appearance,Urine Clear (Clear); Bilirubin,Urine Negative (Negative); Blood,Urine Negative (Negative); Color,Urine Yellow; Glucose,Urine (UA) Negative (Negative); Ketones,Urine Negative (Negative); Leukocyte Esterase,Urine Negative (Negative); Nitrite,Urine Negative (Negative); PH, Urine 5.5 (5.0-8.0); Protein,Urine Negative (Negative); Specific Gravity,Urine 1.045 (1.001-1.035); Urobilinogen,Urine <2.0 mg/dL (<2.0)
--- NOTE | 2023-10-03 19:04 | CT ---
EXAMINATION TYPE: CT abdomen pelvis w con CT DLP: 1050.2 mGycm, Automated exposure control for dose reduction was used. DATE OF EXAM: 10/03/2023 5:34 PM COMPARISON: None. CLINICAL INDICATION:Male, 72 years old with history of abdominal pain; Abdominal pain x 3 weeks, n/v/ d x 1 day. TECHNIQUE: Axial CT of the abdomen and pelvis. Sagittal and coronal reformats were created on a [employer] workstation. Contrast used:100 cc mL of Isovue 300 with IV Contrast, (none if empty) Oral contrast used: without Oral Contrast (none if empty) FINDINGS: LOWER CHEST: Dependent opacities in the lungs most suggestive of minor atelectasis. Tiny 3 mm nodule seen in the midright lung, and 4 mm nodule in the right lower lobe laterally. Heart size appears uppe r limits of normal. Mild/moderate coronary artery calcifications. No pericardial effusion. ABDOMEN LIVER: Multiple vaguely marginated relatively hypodense solid-appearing lesions throughout the liver, perhaps 20-30 in total, highly concerning for metastases. Portal vein is enhancing. GALLBLADDER AND BILE DUCTS: Unremarkable gallbladder. No biliary ductal dilatation. PANCREAS: Fatty infiltration throughout the pancreas. No gross identifiable pancreatic mass. SPLEEN: Unremarkable. ADRENAL GLANDS: No evidence of mass.. KIDNEYS AND URETERS: Kidneys enhance symmetrically. There is no evidence of renal mass, hydronephrosi s, or visible calculi. Bilateral parapelvic cysts. PELVIS BLADDER: Mildly distended, otherwise unremarkable REPRODUCTIVE: Unremarkable. ABDOMEN & PELVIS STOMACH AND BOWEL: Stomach and small bowel are nondistended, no evidence of obstruction. Small ovoi d radiodensity in the gastric lumen likely medication tablet. There is some fluid seen in the stomac h and duodenal sweep. Evaluation of small bowel is limited without enteric contrast. No clear evidenc e of a small bowel mass however some loops appear clustered or matted together, especially in the rig ht pelvis, and malignant/metastatic involvement cannot be excluded. What appears to be appendix looks to be normal. There is moderate stool throughout the colon and some areas of nondistention, limiting assessment. The cecum appears grossly unremarkable. In the mid ascending colon, there is a segment approximately 6.5 cm in length but shows some irregular peripheral wall thickening and mild luminal narrowing, rais ing concern for neoplasm. From the hepatic flexure onwards, there is moderate stool and some gas seen throughout the colon. Distal colon appears relatively collapsed. PERITONEUM/RETROPERITONEUM: No pneumoperitoneum is seen. There is diffuse haziness throughout the m esentery suggesting edema. No significant quantity or drainable ascites seen.. There are numerous enl arged soft tissue densities throughout the mesentery as well as the retroperitoneum, consistent with lymphadenopathy which is probably metastatic. Some examples: * A right upper quadrant/periportal conglomerate image 34 series 201 is 4 x 3.2 cm. * A C-shaped mesenteric lymph node conglomerate image 40, 5.7 x 3.5 cm. * One of many enlarged nodes in the anterior mesentery image 48 is 2 x 1.7 cm. * Mesenteric wendy conglomerate in the right midabdomen image 49 is 4.6 x 1.9 cm. * Anterior to the IVC image 56 is 3.2 x 2.4 cm. Other examples are possible. VASCULATURE: Mild atherosclerotic calcifications are present throughout the abdominal aorta and its b ranches. No evidence of aortic aneurysm. Portal veins are enhancing. Splenic vein is patent. LYMPH NODES: See description above. SOFT TISSUE/ABDOMINAL WALL: Moderate-sized right and small to moderate sized left fat-containing ingu inal hernias. Small fat-containing umbilical hernia. MUSCULOSKELETAL: No acute osseous anomalies. Moderate diffuse chronic degenerative changes. No evide nce of destructive or sclerotic bony lesion. IMPRESSION: 1. Multiple hypodense hepatic masses, highly concerning for metastases. 2. In the mid ascending colon, there is a segment with irregular peripheral wall thickening concerni ng for neoplasm. 3. Numerous enlarged soft tissue densities throughout the mesentery as well as the retroperitoneum, consistent with lymphadenopathy, very likely metastatic. 4. Diffuse mesenteric edema. 5. A couple tiny nodules in the imaged right lung base. Recommend correlation with complete CT chest when appropriate for staging purposes.
[2023-10-03] MEDS: ACET/COD 300 MG/30 MG STARTER PACK 6 TAB BTL PO STA (21:41)
[2023-10-03 22:11] VITALS: BP 151/94; PULSE 63
[2023-10-03 22:12] VITALS: TEMP 98.5
== END 2023-10-03 22:39 | disposition home or self-care (01) ==
LOC: EC 14:51
DX: R10.9 Unspecified abdominal pain (principal)
CPT/HCPCS: 36415; 93005; 80053; 82150; 83605; 83690; 85025; 81003; 74177; 99284; 96374; 96361 ×4; J1885; Q9967

== ENCOUNTER 2023-10-07 14:29 | Observation (INO) | payer MEDICARE ==
[2023-10-07 15:01] LABS: Basophils # (A) 0.1 k/uL (0-0.2); Basophils % (A) 0 %; Eosinophils # (A) 0.1 k/uL (0-0.7); Eosinophils % (A) 1 %; HCT 40.7 % (39.0-53.0); HGB 13.2 gm/dL (13.0-17.5); Lymphocytes % (A) 7 %; MCH 28.6 pg (25.0-35.0); MCHC 32.4 g/dL (31.0-37.0); MCV 88.4 fL (80.0-100.0); Mean Platelet Volume 7.9; Monocytes # (A) 0.6 k/uL (0-1.0); Monocytes % (A) 5 %; Neutrophils # (A) 11.5 k/uL (1.3-7.7); Neutrophils % (A) 86 %; Platelet Count 230 k/uL (150-450); RBC 4.61 m/uL (4.30-5.90); RDW 14.4 % (11.5-15.5); WBC 13.3 k/uL (3.8-10.6)
[2023-10-07 15:15] LABS: ALT 18 U/L (4-49); AST 25 U/L (17-59); African American GFR (CKD) >90 (>60 ml/min/1.73 sqM); Albumin 3.5 g/dL (3.5-5.0); Alkaline Phosphatase 78 U/L (38-126); Amylase 42 U/L (30-110); Anion Gap 3 mmol/L; Blood Urea Nitrogen 13 mg/dL (9-20); Calcium 9.3 mg/dL (8.4-10.2); Carbon Dioxide 29 mmol/L (22-30); Chloride 105 mmol/L (98-107); Glucose 128 mg/dL (74-99); Lipase 23 U/L (23-300); Non-African American GFR(CKD) >90 (>60 ml/min/1.73 sqM); Potassium 3.9 mmol/L (3.5-5.1); Sodium 137 mmol/L (137-145); Total Bilirubin 0.6 mg/dL (0.2-1.3); Total Protein 7.4 g/dL (6.3-8.2)
--- NOTE | 2023-10-07 15:20 | XR ---
EXAMINATION TYPE: XR KUB DATE OF EXAM: 10/07/2023 Comparison: 06/03/[address] 10/03/2023 Clinical History: 72-year-old male abdominal pain Findings: Mild scattered stool. No dilated small bowel or air-fluid levels. Lung bases are clear. No evidence f or free intraperitoneal air. No suspicious calcifications seen. Impression: No evidence for free air or bowel obstruction. Mild stool predominantly in the right side of the abdo men.
--- NOTE | 2023-10-07 15:23 | ED ---
Abdominal Pain HPI - General Source: patient, family, RN notes reviewed Mode of arrival: ambulatory Limitations: no limitations <Aimee Oshea - Last Filed: 10/07/23 15:24> - General Source: RN notes reviewed <Naila Hernandez - Last Filed: 10/07/23 20:05> - General Chief Complaint: Abdominal Pain Stated Complaint: Chest pains Time Seen by Provider: 10/07/23 14:48 - History of Present Illness Initial Comments: Quick noteis a 72-year-old male with a history of dementia presents emergency department chief complaint of lower abdominal pain and upper chest discomfort beneath his clavicle. Family states that patient was seen in the emergency department on 10/02 for abdominal pain where he was found to have CT findings noted for neoplasm/metastasis and was given referrals.Pain has worsened over the last few days. (Aimee Oshea) 72-year-old male with history of dementia presenting to the ER with chief complaint of chest and abdominal pain x 4 days. Patient was seen in the ER 4 days ago for this same complaint and CT scan of abdomen showed neoplasm/metastasis and referrals were given at this time. Patient still having nonspecific dull chest and abdominal pain and rates his pain an 8 out of 10. He is able to tolerate orals appetite has been less. Family reports he has been sleeping more lately. He has been taking Tylenol #3s which has been relieving his pain. Denies dysuria, urinary frequency, urinary urgency, vomiting, fever. Last bowel movement was yesterday and was normal. (Naila Hernandez) - Related Data Home Medications Medication Instructions Recorded Confirmed tadalafiL [Cialis] 20 mg PO DAILY PRN 01/11/22 01/11/22 Donepezil [Aricept] 10 mg PO HS 10/07/23 10/07/23 Losartan [Cozaar] 50 mg PO DAILY 10/07/23 10/07/23 Meclizine [Antivert] 12.5 mg PO Q8H PRN 10/07/23 10/07/23 Rosuvastatin Calcium 5 mg PO DAILY 10/07/23 10/07/23 Solifenacin Succinate [Vesicare] 10 mg PO DAILY 10/07/23 10/07/23 Previous Rx's Medication Instructions Recorded Ondansetron Odt [Zofran Odt] 4 mg PO Q8HR PRN #15 tab 06/03/23 Acetaminophen Tab [Tylenol] 500 mg PO Q6H #30 tablet 10/03/23 Allergies Allergy/AdvReac Type Severity Reaction Status Date / Time No Known Allergies Allergy Verified 10/07/23 17:48 Review of Systems ROS Other: All systems not noted in ROS Statement are negative. <Aimee Oshea - Last Filed: 10/07/23 15:24> ROS Other: All systems not noted in ROS Statement are negative. <Naila Hernandez - Last Filed: 10/07/23 20:05> ROS Statement: Those systems with pertinent positive or pertinent negative responses have been documented in the HPI. Past Medical History Past Medical History: Dementia, Hypertension, Sleep Apnea/CPAP/BIPAP Additional Past Medical History / Comment(s): gout History of Any Multi-Drug Resistant Organisms: None Reported Past Surgical History: Orthopedic Surgery Additional Past Surgical History / Comment(s): ORIF rt wrist Past Anesthesia/Blood Transfusion Reactions: Unable to Obtain Past Psychological History: No Psychological Hx Reported Smoking Status: Never smoker Past Alcohol Use History: Occasional Past Drug Use History: None Reported - Past Family History Father Family Medical History: Cancer <Aimee Oshea - Last Filed: 10/07/23 15:24> General Exam Limitations: no limitations <Aimee Oshea - Last Filed: 10/07/23 15:24> General appearance: alert, in no apparent distress Head exam: Present: atraumatic, normocephalic, normal inspection Eye exam: Present: normal appearance, scleral icterus. Absent: conjunctival injection, periorbital swelling ENT exam: Present: normal exam, mucous membranes moist Neck exam: Present: normal inspection. Absent: tenderness, meningismus, lymphadenopathy Respiratory exam: Present: normal lung sounds bilaterally. Absent: respiratory distress, wheezes, rales, rhonchi, stridor Cardiovascular Exam: Present: regular rate, normal rhythm, normal heart sounds. Absent: systolic murmur, diastolic murmur, rubs, gallop, clicks GI/Abdominal exam: Present: soft, tenderness (Mild tenderness in the right upper quadrant.), normal bowel sounds. Absent: distended, guarding, rebound, rigid Neurological exam: Present: alert, oriented X3 Psychiatric exam: Present: normal affect, normal mood Skin exam: Present: warm, dry, intact, normal color. Absent: rash <Naila Hernandez - Last Filed: 10/07/23 20:05> - General Exam Comments Initial Comments: Visual Physical Exam Vital signs reviewed General: Well-appearing, nontoxic, no acute distress. Head: Normocephalic, atraumatic Eyes: PERRLA, EOMI ENT: Airway patent Chest: Nonlabored breathing Skin: No visual rash, normal skin tone Neuro: Alert and oriented 3 Musculoskeletal: No gross abnormalities (Aimee Oshea) Course Vital Signs 10/07/23 14:30 Temperature 97.7 F Pulse Rate 64 Respiratory 18 Rate Blood Pressure 148/84 O2 Sat by Pulse 98 Oximetry Medical Decision Making - Lab Data Result diagrams: 10/07/23 14:49 10/07/23 14:49 <Aimee Oshea - Last Filed: 10/07/23 15:24> - Lab Data Result diagrams: 10/07/23 14:49 10/07/23 14:49 - EKG Data -: EKG Interpreted by Me <Naila Hernandez - Last Filed: 10/07/23 20:05> - Medical Decision Making I completed the quick note portion of this chart signed Aimee Oshea PA-C (Aimee Oshea) Was pt. sent in by a medical professional or institution (KHADRA Rojas, HEALTH CARE LEGAL ASSISTANT, urgent care, hospital, or group home...) When possible be specific @ -No Did you speak to anyone other than the patient for history (EMS, parent, family, police, friend...)? What history was obtained from this source @ -Patient's family members provided most of history as patient has dementia Did you review nursing and triage notes (agree or disagree)? Why? @ -I reviewed and agree with nursing and triage notes Were old charts reviewed (outside hosp., previous admission, EMS record, old EKG, old radiological studies, urgent care reports/EKG's, group home records)? Report findings @ -CT scan of abdomen from 4 days ago reviewed which revealed colon tumor with metastatic disease Differential Diagnosis (chest pain, altered mental status, abdominal pain women, abdominal pain men, vaginal bleeding, weakness, fever, dyspnea, syncope, headache, dizziness, GI bleed, back pain, seizure, CVA, palpatations, mental health, musculoskeletal)? @ -Differential Chest Pain: Stable Angina, Unstable Angina, STEMI, NSTEMI Aortic Dissection, Pneumothorax, Musculoskeletal, Esophageal Spasm GERD, Cholecystitis, Pancreatitis, Zoster, this is not meant to be an all-inclusive list. EKG interpreted by me (3pts min.). @ -As above X-rays interpreted by me (1pt min.). @ -Chest x-ray and KUB revealed no acute process CT interpreted by me (1pt min.). @ -None done U/S interpreted by me (1pt. min.). @ -None done What testing was considered but not performed or refused? (CT, X-rays, U/S, labs)? Why? @ -None What meds were considered but not given or refused? Why? @ -None Did you discuss the management of the patient with other professionals (professionals i.e. , PA, HEALTH CARE LEGAL ASSISTANT, lab, RT, psych nurse, healthcare social worker, direct service worker, teacher, logistics officer, pillowcase maker)? Give summary @ -Discussed case with [facility] who agreed to admit patient for pain control as well as oncology and surgical consult as patient has not been able to get outpatient appointment. Was smoking cessation discussed for >3mins.? @ -No Was critical care preformed (if so, how long)? @ -No Were there social determinants of health that impacted care today? How? (Homelessness, low income, unemployed, alcoholism, drug addiction, transportatio n, low edu. Level, literacy, decrease access to med. care, residential, rehab)? @ -No Was there de-escalation of care discussed even if they declined (Discuss DNR or withdrawal of care, Hospice)? DNR status @ -No What co-morbidities impacted this encounter? (DM, HTN, Smoking, COPD, CAD, Cancer, CVA, ARF, Chemo, Hep., AIDS, mental health diagnosis, sleep apnea, morbid obesity)? @ -Cancer Was patient admitted / discharged? Hospital course, mention meds given and route, prescriptions, significant lab abnormalities, going to OR and other pertinent info. @ -Patient was admitted. Patient was seen and evaluated for abdominal and chest pain for the past 4 days. Patient was seen 4 days ago for similar symptoms where he had CT of abdomen which showed colon tumor with evidence of metastatic disease. Patient presents with family who states that they have been unable to with oncology. Vital signs and lab work, EKG, KUB, and chest x-ray are unremarkable. Discussed case with sound physicians who agreed to admit patient for pain control as well as oncology and surgical consult. Case discussed with Dr. Martin. Undiagnosed new problem with uncertain prognosis? @ -No Drug Therapy requiring intensive monitoring for toxicity (Heparin, Nitro, Insulin, Cardizem)? @ -No Were any procedures done? @ -No Diagnosis/symptom? @ -Metastatic colon cancer Acute, or Chronic, or Acute on Chronic? @ -Acute Uncomplicated (without systemic symptoms) or Complicated (systemic symptoms)? @ -Complicated Side effects of treatment? @ -No Exacerbation, Progression, or Severe Exacerbation? @ -No Poses a threat to life or bodily function? How? (Chest pain, USA, NV, pneumonia, PE, COPD, DKA, ARF, appy, cholecystitis, CVA, Diverticulitis, Homicidal, Suicidal, threat to staff... and all critical care pts) @ -Yes (Naila Hernandez) - Lab Data Lab Results 10/07/23 10/07/23 Range/Units 14:49 14:49 WBC 13.3 H (3.8-10.6) k/uL RBC 4.61 (4.30-5.90) m/uL Hgb 13.2 (13.0-17.5) gm/dL Hct 40.7 (39.0-53.0) % MCV 88.4 (80.0-100.0) fL MCH 28.6 (25.0-35.0) pg MCHC 32.4 (31.0-37.0) g/dL RDW 14.4 (11.5-15.5) % Plt Count 230 (150-450) k/uL MPV 7.9 Neutrophils % 86 % Lymphocytes % 7 % Monocytes % 5 % Eosinophils % 1 % Basophils % 0 % Neutrophils # 11.5 H (1.3-7.7) k/uL Lymphocytes # 1.0 (1.0-4.8) k/uL Monocytes # 0.6 (0-1.0) k/uL Eosinophils # 0.1 (0-0.7) k/uL Basophils # 0.1 (0-0.2) k/uL Sodium 137 (137-145) mmol/L Potassium 3.9 (3.5-5.1) mmol/L Chloride 105 (98-107) mmol/L Carbon Dioxide 29 (22-30) mmol/L Anion Gap 3 mmol/L BUN 13 (9-20) mg/dL Creatinine 0.76 (0.66-1.25) mg/dL Est GFR (CKD-EPI)AfAm >90 (>60 ml/min/1.73 sqM) Est GFR (CKD-EPI)NonAf >90 (>60 ml/min/1.73 sqM) Glucose 128 H (74-99) mg/dL Calcium 9.3 (8.4-10.2) mg/dL Total Bilirubin 0.6 (0.2-1.3) mg/dL AST 25 (17-59) U/L ALT 18 (4-49) U/L Alkaline Phosphatase 78 (38-126) U/L Total Protein 7.4 (6.3-8.2) g/dL Albumin 3.5 (3.5-5.0) g/dL Amylase 42 (30-110) U/L Lipase 23 (23-300) U/L - EKG Data EKG Comments: Normal sinus rhythm with low QRS voltage in precordial leads. Ventricular rate 60 bpm, DE interval 170, QRS duration 87, QT/QTc 407/409. (Naila Hernandez) Disposition <Aimee Oshea - Last Filed: 10/07/23 15:24> Time of Disposition: 20:05 <Naila Hernandez - Last Filed: 10/07/23 20:05> Clinical Impression: Colon cancer Disposition: ADMITTED IP TO THIS HOSP Condition: Stable Referrals: Ana Villatoro MD [Primary Care Provider] - 1-2 days
--- NOTE | 2023-10-07 17:55 | XR ---
EXAMINATION TYPE: XR chest 2V DATE OF EXAM: 10/07/2023 5:45 PM CLINICAL INDICATION:Male, 72 years old with history of chest pain; COMPARISON: Chest radiographs from 01/11/2022. TECHNIQUE: XR chest 2V Frontal and lateral views of the chest. FINDINGS: Lungs/Pleura: There is no evidence of pleural effusion, focal consolidation, or pneumothorax. Pulmonary vascularity: Unremarkable. Heart/mediastinum: Cardiomediastinal silhouette is unremarkable. Musculoskeletal: No acute osseous pathology. IMPRESSION: No acute cardiopulmonary disease/process.
[2023-10-07] MEDS: Acetaminophen-Codeine 300-30mg TAB PO STA (18:07)
[2023-10-07] MEDS ORDERED: NALOXONE 0.4 MG/ML 1 ML VIAL IV PRN (19:55)
--- NOTE | 2023-10-08 00:25 | P.HPIM ---
History of Present Illness H&P Date: 10/07/23 Patient is a 72-year-old male with a PMH of hypertension and mild dementia who was brought to the emergency room by his for complaints of abdominal discomfort. Patient reports that he has been experiencing intermittent abdominal diffuse discomfort over the past 4 to 5 months. The pain has gra dually worsened and is a 9 out of 10 on most days for several hours at a time. His PCP had ordered a colonoscopy which has not been performed yet. The patient was seen in the emergency room earlier this month on 10/[address] abdomen and pelvis revealed multiple hypodense hepatic lesions concerning for metastasis with mid ascending colon suspected mass along with diffuse mesenteric edema with lung nodules also concerning for metastasis. At time of interview today, patient notes that his pain is a 2 out of 10, diffusely throughout the abdomen. He was given a referral to Dr. Dc but his has been unable to make an appointment. He has also had a 20 pound weight loss over the past 4 to 5 months. Denies experiencing nausea, vomiting, diarrhea fever, chills, cough, shortness of breath. Chest x-ray in the emergency room was unremarkable with EKG showing sinus rhythm at 60 bpm with T wave inversion in lead III with no additional ST/T wave changes noted as reviewed by me. Laboratory evaluation was remarkable for leukocytosis of 13.3, troponin less than 0.012, sodium 137, potassium 3.9, BUN 13, creatinine 0.76. ED documentation reviewed and case discussed with ED provider. Review of systems: Pertinent positives and negatives as discussed in HPI, a complete review of sys tems was performed and all other systems are negative. Physical examination: Vital signs reviewed General: non toxic, no distress, appears at stated age, normal weight Derm: no unusual rashes/lesions, warm Head: atraumatic, normocephalic, symmetric Eyes: EOMI, no lid lag, anicteric sclera, pupils equal round reactive to light ENT: Nose and ears atraumatic Neck: No cervical lymphadenopathy, trachea midline, supple Mouth: no lip lesion, mucus membranes moist Cardiovascular: S1S2 reg, no murmur, positive dorsalis pedis pulse bilateral, no edema Lungs: CTA bilateral, no rhonchi, no rales, no accessory muscle use Abdominal: soft, minimal tenderness diffusely, no guarding Ext: muscle strength 5 out of 5 in all 4 extremities grossly, no gross muscle atrophy, no contractures, Neuro: CN II-XI grossly intact, no gross focal neuro deficits Psych: Alert, oriented to person and place, not oriented to time Assessment: Metastatic malignancy, suspected colon cancer primary Intractable abdominal pain, suspect secondary to above Chronic conditions: Hypertension, dementia Imaging: Chest x-ray in the emergency room was unremarkable with EKG showing sinus rhythm at 60 bpm with T wave inversion in lead III with no additional ST/T wave changes noted as reviewed by me. Data Review: Laboratory evaluation was remarkable for leukocytosis of 13.3, troponin less than 0.012, sodium 137, potassium 3.9, BUN 13, creatinine 0.76. Plan: Oncology consulted regarding guidance for appropriate biopsy location Continue with pain control with [place] 5 Resume home medications including Aricept and losartan DVT prophylaxis: Lovenox subcu The patient is admitted with an anticipated less than 2 midnight stay for evaluation of intractable abd pain CODE STATUS: Full Code Discussed with: Patient, Anticipated discharge place: Home Past Medical History Past Medical History: Dementia, Hypertension, Sleep Apnea/CPAP/BIPAP Additional Past Medical History / Comment(s): gout History of Any Multi-Drug Resistant Organisms: None Reported Past Surgical History: Orthopedic Surgery Additional Past Surgical History / Comment(s): ORIF rt wrist Past Anesthesia/Blood Transfusion Reactions: Unable to Obtain Past Psychological History: No Psychological Hx Reported Smoking Status: Never smoker Past Alcohol Use History: Occasional Past Drug Use History: None Reported - Past Family History Father Family Medical History: Cancer Medications and Allergies Home Medications Medication Instructions Recorded Confirmed Type tadalafiL [Cialis] 20 mg PO DAILY PRN 01/11/22 10/07/23 History Ondansetron Odt [Zofran Odt] 4 mg PO Q8HR PRN #15 tab 06/03/23 10/07/23 Rx Acetaminophen Tab [Tylenol] 500 mg PO Q6H #30 tablet 10/03/23 10/07/23 Rx Donepezil [Aricept] 10 mg PO HS 10/07/23 10/07/23 History Losartan [Cozaar] 50 mg PO DAILY 10/07/23 10/07/23 History Meclizine [Antivert] 12.5 mg PO Q8H PRN 10/07/23 10/07/23 History Rosuvastatin Calcium 5 mg PO DAILY 10/07/23 10/07/23 History Solifenacin Succinate [Vesicare] 10 mg PO DAILY 10/07/23 10/07/23 History Allergies Allergy/AdvReac Type Severity Reaction Status Date / Time No Known Allergies Allergy Verified 10/07/23 17:48 Physical Exam Vitals: Vital Signs Temp Pulse Pulse Resp BP BP Pulse Ox 10/07/23 21:36 97.8 F 63 17 158/74 100 10/07/23 21:09 98.5 F 56 L 18 129/77 96 10/07/23 17:55 65 18 160/76 10/07/23 14:30 97.7 F 64 18 148/84 98 Intake and Output 10/07/23 10/07/23 10/08/23 14:59 22:59 06:59 Other: Weight 88.451 kg 88.451 kg Results CBC & Chem 7: 10/07/23 14:49 10/07/23 14:49 Labs: Abnormal Lab Results - Last 24 Hours (Table) 10/07/23 10/07/23 Range/Units 14:49 14:49 WBC 13.3 H (3.8-10.6) k/uL Neutrophils # 11.5 H (1.3-7.7) k/uL Glucose 128 H (74-99) mg/dL Thrombosis Risk Factor Assmnt - Choose All That Apply Any of the Below Risk Factors Present?: Yes Each Factor Represents 1 point: Obesity (BMI >25) Other Risk Factors: Yes Each Risk Factor Represents 2 Points: Age 61-74 years Each Risk Factor Represents 3 Points: Family history of DVT/PE Other congenital or acquired thrombophilia - If yes, enter type in comment: Yes Thrombosis Risk Factor Assessment Total Risk Factor Score: 6 Thrombosis Risk Factor Assessment Level: High Risk
[2023-10-08] MEDS ORDERED: MECLIZINE 12.5 MG TAB PO PRN (01:00)
[2023-10-08] MEDS: HYDROcodone/APAP 5-325MG 1 EACH TAB PO PRN (05:46)
[2023-10-08 06:31] LABS: HCT 40.3 % (39.0-53.0); HGB 13.5 gm/dL (13.0-17.5); MCH 29.2 pg (25.0-35.0); MCHC 33.4 g/dL (31.0-37.0); MCV 87.3 fL (80.0-100.0); Mean Platelet Volume 8.3; Platelet Count 246 k/uL (150-450); RBC 4.61 m/uL (4.30-5.90); RDW 14.7 % (11.5-15.5); WBC 13.4 k/uL (3.8-10.6)
[2023-10-08 07:29] LABS: African American GFR (CKD) >90 (>60 ml/min/1.73 sqM); Anion Gap 7 mmol/L; Blood Urea Nitrogen 12 mg/dL (9-20); Calcium 9.3 mg/dL (8.4-10.2); Carbon Dioxide 24 mmol/L (22-30); Chloride 106 mmol/L (98-107); Glucose 104 mg/dL (74-99); Non-African American GFR(CKD) >90 (>60 ml/min/1.73 sqM); Potassium 3.9 mmol/L (3.5-5.1); Sodium 137 mmol/L (137-145)
[2023-10-08 08:19] VITALS: BP 161/77; PULSE 69; RESP 18; TEMP 97.6
[2023-10-08] MEDS: LOSARTAN 50 MG TAB PO SCH (09:20)
[2023-10-08] MEDS: TROSPIUM CHLORIDE 20 MG TABLET PO SCH (09:20)
[2023-10-08] MEDS: ATORVASTATIN 10 MG TAB PO SCH (09:20)
[2023-10-08] MEDS: ENOXAPARIN 40 MG/0.4 ML SYRINGE SQ SCH (09:21)
[2023-10-08] MEDS ORDERED: hydrOXYzine HCL 25 MG TAB PO PRN (11:40)
--- NOTE | 2023-10-08 16:31 | P.DS ---
Providers Date of admission: 10/07/23 19:04 Expected date of discharge: 10/08/23 Attending physician: Allyson Figueroa MD Consults: 10/07/23 19:55 Consult Physician Urgent Consulting Provider: Gabe Byrne Consult Reason/Comments: metastatic colon cancer Do you want consulting provider notified?: Yes Primary care physician: Ana Villatoro [facility] Course: Discharge Diagnosis: Multiple hepatic lesions, ascending colon lesion, and mesenteric lymphadenopathy -suspect metastatic cancer Intractable abdominal pain Hypertension Dementia Hospital Course: Patient is a 72-year-old male with known hypertension, dementia, and sleep apnea who presented to the ER with intractable abdominal pain. Patient has been complaining of abdominal pain for 4 to 5 months and had an outpatient colonoscopy ordered which has yet to be performed. He came to the ER on 10/[address] abdomen and pelvis due to the pain which demonstrated multiple hypodense hepatic metastasis with wall thickening in the mid ascending colon as well as numerous enlarged soft tissue densities in the mesentery and retroperitoneum consistent with lymphadenopathy. At that point in time he was discharged home with recommended follow-up with Dr. Dc. He represented to the ER due to intractable pain. They had not yet seen Dr. Dc. He was admitted and was started on IV morphine and Spearfish. His pain was then well- controlled. He was seen by Dr. Byrne from oncology. He is recommending liver biopsy be obtained. Unfortunately the patient had taken aspirin yesterday. He is therefore recommending liver biopsy next week in the outpatient setting. Patient and family are in agreement. He was determined stable for discharge home. Follow-up: Dr. Byrne next week for liver biopsy. Patient to stay off aspirin until then. Dr. Villatoro in 3 to 4 days. Spearfish for pain and zofran for nausea. Patient seen and examined at bedside. Family present at bedside. He denies any pain. No nausea. States that the Spearfish is helping. All questions answered. Vital signs reviewed and stable. General: Nontoxic, no distress, appears at stated age Cardiovascular: S1S2 reg, no murmur, positive posterior tibial pulse bilateral, Lungs: CTA bilateral, no rhonchi, no rales, no accessory muscle use Abdominal: Soft, nontender to palpation, no guarding, no appreciable organomegaly Ext: No gross muscle atrophy, no edema b/l lower extremities, no contractures Neuro: CN II-XI grossly intact, no focal neuro deficits Psych: Alert, oriented, appropriate affect A total of 35 minutes of time were spent preparing this complex discharge summary. Patient was discharged on 10/08/23. This dictation was prepared using [employer] voice recognition software. Though every attempt is made to correct errors during dictation some may still exist. Patient Condition at Discharge: Stable Plan - Discharge Summary New Discharge Prescriptions: New HYDROcodone/APAP 5-325MG [[place]fish 5-325] 1 each PO Q6HR PRN #21 tab PRN Reason: Pain Continue tadalafiL [Cialis] 20 mg PO DAILY PRN PRN Reason: E.D. Ondansetron Odt [Zofran ODT] 4 mg PO Q8HR PRN #15 tab PRN Reason: Nausea And Vomiting Meclizine [Antivert] 12.5 mg PO Q8H PRN PRN Reason: Vertigo Donepezil [Aricept] 10 mg PO HS Acetaminophen Tab [Tylenol] 500 mg PO Q6H #30 tablet Solifenacin Succinate [Vesicare] 10 mg PO DAILY Rosuvastatin Calcium 5 mg PO DAILY Losartan [Cozaar] 50 mg PO DAILY Discharge Medication List tadalafiL [Cialis] 20 mg PO DAILY PRN 01/11/22 [History] Ondansetron Odt [Zofran ODT] 4 mg PO Q8HR PRN #15 tab 06/03/23 [Rx] Acetaminophen Tab [Tylenol] 500 mg PO Q6H #30 tablet 10/03/23 [Rx] Donepezil [Aricept] 10 mg PO HS 10/07/23 [History] Losartan [Cozaar] 50 mg PO DAILY 10/07/23 [History] Meclizine [Antivert] 12.5 mg PO Q8H PRN 10/07/23 [History] Rosuvastatin Calcium 5 mg PO DAILY 10/07/23 [History] Solifenacin Succinate [Vesicare] 10 mg PO DAILY 10/07/23 [History] HYDROcodone/APAP 5-325MG [[place]fish 5-325] 1 each PO Q6HR PRN #21 tab 10/08/23 [Rx] Follow up Appointment(s)/Referral(s): Ana Villatoro MD [Primary Care Provider] - 1-2 days Gabe Byrne [STAFF PHYSICIAN] - 1 Week (will work on arranging outpatient liver biopsy. No aspirin until after liver biopsy. ) Patient Instructions/Handouts: Hydrocodone/Acetaminophen (By mouth) Activity/Diet/Wound Care/Special Instructions: Activity: As tolerated Diet: regular Special Instructions: Dr. Byrne's office is arranging for outpatient liver biopsy. No aspirin until that is preformed. Discharge Disposition: HOME SELF-CARE
--- NOTE | 2023-10-08 17:32 | P.CONS ---
History of Present Illness - Reason for Consult Consult date: 10/08/23 Liver and intra-abdominal masses, possible colon mass - History of Present Illness The patient is a 72-year-old white male with well-controlled medical problems. The patient does have some mild dementia at baseline. He was brought into the hospital by his family as he was having persistent abdominal pain, more localiz ed to the right upper abdomen, decreased appetite and fatigue. According to his family he had been sleeping constantly over the past, almost 2 days. The patient did come into the ER on 10/03/23 with similar complaints of abdominal pain and had a CT of the abdomen and pelvis. This showed multiple liver masses, in the 20+ range, as well as multiple masses involving the mesentery. There was also thickening of the Mid ascending colon, and some small nodules noted in bilateral lung bases. The patient was treated symptomatically, and was discharged from the ER with referred to see Dr. Dc in the office. However he came back to the hospital before the family could make that appointment. There is no prior history of malignancy. The patient's last colonoscopy was many years ago, possibly 10-and 15+ according to his family. There apparently has not been significant change in his bowel habits obvious bleeding. However appetite has been diminished over the past 2 months or so when his symptoms started, and he has lost about 20 pounds. Review of Systems Constitutional: Reports poor appetite, Reports weight loss Eyes: denies blurred vision, denies pain Ears: deny: decreased hearing, ear discharge, earache, tinnitus Ears, nose, mouth and throat: Denies headache, Denies sore throat Cardiovascular: Denies chest pain, Denies shortness of breath Respiratory: Denies cough Gastrointestinal: Reports abdominal pain Musculoskeletal: Reports muscle weakness Integumentary: Denies pruritus, Denies rash Neurological: Reports memory loss, Reports weakness Psychiatric: Reports memory loss, Denies anxiety, Denies depression Endocrine: Reports fatigue, Reports weight change Hematologic/Lymphatic: Reports as per HPI Past Medical History Past Medical History: Dementia, Hypertension, Sleep Apnea/CPAP/BIPAP Additional Past Medical History / Comment(s): gout History of Any Multi-Drug Resistant Organisms: None Reported Past Surgical History: Orthopedic Surgery Additional Past Surgical History / Comment(s): ORIF rt wrist Past Anesthesia/Blood Transfusion Reactions: Unable to Obtain Past Psychological History: No Psychological Hx Reported Smoking Status: Never smoker Past Alcohol Use History: Occasional Past Drug Use History: None Reported - Past Family History Father Family Medical History: Cancer Medications and Allergies Home Medications Medication Instructions Recorded Confirmed Type tadalafiL [Cialis] 20 mg PO DAILY PRN 01/11/22 10/07/23 History Ondansetron Odt [Zofran ODT] 4 mg PO Q8HR PRN #15 tab 06/03/23 10/07/23 Rx Acetaminophen Tab [Tylenol] 500 mg PO Q6H #30 tablet 10/03/23 10/07/23 Rx Donepezil [Aricept] 10 mg PO HS 10/07/23 10/07/23 History Losartan [Cozaar] 50 mg PO DAILY 10/07/23 10/07/23 History Meclizine [Antivert] 12.5 mg PO Q8H PRN 10/07/23 10/07/23 History Rosuvastatin Calcium 5 mg PO DAILY 10/07/23 10/07/23 History Solifenacin Succinate [Vesicare] 10 mg PO DAILY 10/07/23 10/07/23 History HYDROcodone/APAP 5-325MG [[place] 1 each PO Q6HR PRN #21 tab 10/08/23 Rx 5-325] Allergies Allergy/AdvReac Type Severity Reaction Status Date / Time No Known Allergies Allergy Verified 10/07/23 17:48 Physical Exam Vitals: Vital Signs Temp Pulse Pulse Resp BP BP Pulse Ox 10/08/23 08:00 97.6 F 69 18 161/77 97 10/08/23 01:26 97.7 F 56 L 17 162/75 99 10/07/23 21:36 97.8 F 63 17 158/74 100 10/07/23 21:09 98.5 F 56 L 18 129/77 96 10/07/23 17:55 65 18 160/76 Intake and Output 10/08/23 10/08/23 10/08/23 06:59 14:59 22:59 Other: # Voids 2 - Constitutional General appearance: no acute distress - EENT Eyes: EOMI, PERRLA ENT: hearing grossly normal, normal oropharynx - Respiratory Respiratory: bilateral: CTA - Cardiovascular Rhythm: regular Heart sounds: normal: S1, S2 - Gastrointestinal General gastrointestinal: hepatomegaly (Shyann right upper quadrant, with liver edge likely palpable about 2 fingers breadths below costal margin), normal bowel sounds, soft - Integumentary Integumentary: normal - Neurologic Neurologic: CNII-XII intact - Musculoskeletal Musculoskeletal: strength equal bilaterally - Psychiatric Decreased recall Psychiatric: A&O x's 3 Results CBC & Chem 7: 10/08/23 06:16 10/08/23 06:16 Labs: Abnormal Lab Results - Last 24 Hours (Table) 10/08/23 10/08/23 Range/Units 06:16 06:16 WBC 13.4 H (3.8-10.6) k/uL Glucose 104 H (74-99) mg/dL Abdominal x-ray: report reviewed CT scan - abdomen: report reviewed CT scan - pelvis: report reviewed Assessment and Plan (1) Metastasis to liver Narrative/Plan: The patient is preventing with what appears to be metastatic cancer on imaging, with heavy burden of disease in the liver, and in the mesentery. His symptoms are likely related to the same. He has been having abdominal pain, and was likely dehydrated because of decreased appetite , which has been progressive over the last couple of months. Currently, with hydration the patient appears t o be feeling fairly well. - The imaging results and implications were discussed in detail with the p hair, his and daughter. They were advised that the clinical picture is highly suggestive of a metastatic malignancy. At this time given the findings in the colon, a colon primary is felt to be a main differential. However other primary sites cannot be ruled out without a definite tissue diagnosis. - The next step would be a tissue diagnosis. The options in this case would include colonoscopy or liver biopsy. I would prefer liver biopsy, since a positive result indicating chronic origin would confirm both the primary site as well as metastatic disease. The rationale was discussed in detail with the patient, and also with the primary service. They were in agreement. However the patient has been on aspirin at home. He does not take it for any specific reason and his last dose was on 10/07/23. The family were advised that typically for liver biopsy, aspirin will need to be held for a few days. - Therefore at this time it was recommended that the patient could potentially be discharged home on pain medications and antiemetics. They were advised to discontinue his aspirin. We will schedule outpatient biopsy with IR next week. Status: Acute Code(s): C78.7 - SECONDARY MALIG NEOPLASM OF LIVER AND INTRAHEPATIC BILE DUCT SNOMED Code(s): 94184999 Plan: Defer to the admitting service for management of his other medical issues. Case discussed in detail with them.
[2023-10-08] MEDS ORDERED: DONEPEZIL 10 MG TAB PO SCH (21:00)
== END 2023-10-08 12:44 | disposition home or self-care (01) ==
LOC: EC 14:29 → 5NMEDONC 19:04
PROVIDERS: ADMIT Internal Medicine; ATTEND Internal Medicine
DX: K76.9 Liver disease, unspecified (principal); K63.9 Disease of intestine, unspecified; R59.0 Localized enlarged lymph nodes; R10.9 Unspecified abdominal pain; F03.A0 Unspecified dementia, mild, without behavioral disturbance, psychotic disturbance, mood disturbance, and anxiety; I10 Essential (primary) hypertension; G47.30 Sleep apnea, unspecified; C18.9 Malignant neoplasm of colon, unspecified; C78.7 Secondary malignant neoplasm of liver and intrahepatic bile duct; Z79.899 Other long term (current) drug therapy
CPT/HCPCS: 96372; 99285; 36415; 93005; 80053; 80048; 82150; 83690; 84484; 85025; 85027; 71046; 74018; G0378 ×2; J1650

== ENCOUNTER 2023-10-25 11:34 | Emergency (ER) | payer MEDICARE ==
[2023-10-25 12:36] VITALS: TEMP 98.1
[2023-10-25 13:14] LABS: Basophils % (A) 0 %; Eosinophils # (A) 0.2 k/uL (0-0.7); Eosinophils % (A) 1 %; HCT 42.7 % (39.0-53.0); Lymphocytes # (A) 1.1 k/uL (1.0-4.8); Lymphocytes % (A) 8 %; MCH 28.9 pg (25.0-35.0); MCHC 32.7 g/dL (31.0-37.0); MCV 88.3 fL (80.0-100.0); Mean Platelet Volume 7.5; Monocytes # (A) 0.8 k/uL (0-1.0); Monocytes % (A) 6 %; Neutrophils # (A) 11.9 k/uL (1.3-7.7); Neutrophils % (A) 84 %; Platelet Count 235 k/uL (150-450); RBC 4.83 m/uL (4.30-5.90); RDW 14.7 % (11.5-15.5); WBC 14.2 k/uL (3.8-10.6)
[2023-10-25] MEDS: ONDANSETRON 4 MG/2 ML VIAL IVP STA (13:14)
[2023-10-25] MEDS: PANTOPRAZOLE 40 MG/10 ML VIAL IVP STA (13:14)
[2023-10-25] MEDS: SODIUM CHLORIDE 0.9% 1,000 ML IV STA (13:15)
[2023-10-25 13:22] LABS: Partial Thromboplastin Time 24.8 sec (22.0-30.0); Prothrombin Time 11.4 sec (10.0-12.5)
--- NOTE | 2023-10-25 13:34 | ED ---
Abdominal Pain HPI - General Chief Complaint: Abdominal Pain Stated Complaint: constipation Time Seen by Provider: 10/25/23 12:39 Source: patient, family, RN notes reviewed, old records reviewed Mode of arrival: wheelchair Limitations: no limitations - History of Present Illness Initial Comments: This is a 73-year-old male to the ER for evaluation of abdominal pain today. Severe and persistent abdominal pain recent diagnosis of colon cancer metastasi s. Patient is having persistent abdominal pain here in the emergency room with diminished bowel movements. Patient no travel no sick contacts no other known significant complaints. states patient's appetite has been severely diminished and he started noticed diminished bowel movements MD Complaint: abdominal pain -: days(s) Location: diffuse, epigastric, suprapubic Migration to: no migration Severity: moderate Severity scale (1-10): 4 Quality: stabbing, aching Consistency: constant Improves With: nothing Worsens With: nothing Associated Symptoms: nausea, constipation Treatments Prior to Arrival: other (0) - Related Data Home Medications Medication Instructions Recorded Confirmed tadalafiL [Cialis] 20 mg PO DAILY PRN 01/11/22 10/25/23 Donepezil [Aricept] 10 mg PO HS 10/07/23 10/25/23 Losartan [Cozaar] 50 mg PO DAILY 10/07/23 10/25/23 Meclizine [Antivert] 12.5 mg PO Q8H PRN 10/07/23 10/25/23 Rosuvastatin Calcium 5 mg PO DAILY 10/07/23 10/25/23 Solifenacin Succinate [Vesicare] 10 mg PO DAILY 10/07/23 10/25/23 HYDROcodone/APAP 7.5-325MG [[place] 1 tab PO Q4H PRN 10/25/23 10/25/23 7.5-325] Previous Rx's Medication Instructions Recorded Ondansetron Odt [Zofran ODT] 4 mg PO Q8HR PRN #15 tab 06/03/23 Acetaminophen Tab [Tylenol] 500 mg PO Q6H #30 tablet 10/03/23 Allergies Allergy/AdvReac Type Severity Reaction Status Date / Time No Known Allergies Allergy Verified 10/25/23 16:30 Review of Systems ROS Statement: Those systems with pertinent positive or pertinent negative responses have been documented in the HPI. ROS Other: All systems not noted in ROS Statement are negative. Past Medical History Past Medical History: Cancer, Dementia, Hypertension, Sleep Apnea/CPAP/BIPAP Additional Past Medical History / Comment(s): gout History of Any Multi-Drug Resistant Organisms: None Reported Past Surgical History: Orthopedic Surgery Additional Past Surgical History / Comment(s): ORIF rt wrist Past Anesthesia/Blood Transfusion Reactions: Unable to Obtain Past Psychological History: No Psychological Hx Reported Smoking Status: Never smoker Past Alcohol Use History: Occasional Past Drug Use History: None Reported - Past Family History Father Family Medical History: Cancer General Exam Limitations: no limitations General appearance: alert, in no apparent distress, anxious Head exam: Present: atraumatic, normocephalic, normal inspection Eye exam: Present: normal appearance, PERRL, EOMI. Absent: scleral icterus, conjunctival injection, periorbital swelling ENT exam: Present: normal exam, mucous membranes moist Neck exam: Present: normal inspection. Absent: tenderness, meningismus, lymphadenopathy Respiratory exam: Present: normal lung sounds bilaterally. Absent: respiratory distress, wheezes, rales, rhonchi, stridor Cardiovascular Exam: Present: regular rate, normal rhythm, normal heart sounds. Absent: systolic murmur, diastolic murmur, rubs, gallop, clicks GI/Abdominal exam: Present: soft, normal bowel sounds. Absent: distended, tenderness, guarding, rebound, rigid Extremities exam: Present: normal inspection, full ROM, normal capillary refill. Absent: tenderness, pedal edema, joint swelling, calf tenderness Back exam: Present: normal inspection Neurological exam: Present: alert, oriented X3, CN II-XII intact Psychiatric exam: Present: normal affect, normal mood Skin exam: Present: warm, dry, intact, normal color. Absent: rash Course Vital Signs 10/25/23 10/25/23 10/25/23 11:46 14:16 17:21 Temperature 98.1 F Pulse Rate 70 62 75 Respiratory 17 18 18 Rate Blood Pressure 138/82 154/72 179/88 O2 Sat by Pulse 98 99 98 Oximetry 10/25/23 20:32 Temperature Pulse Rate 65 Respiratory 18 Rate Blood Pressure 163/90 O2 Sat by Pulse 99 Oximetry - Reevaluation(s) Reevaluation #1: 10/25/23 14:14 Medical records reviewed Reevaluation #2: 05/26/24 14:14 Patient symptoms unchanged Reevaluation #3: Patient informed of results and questions answered Reevaluation #4: Was pt. sent in by a medical professional or institution ([facility] Rojas, PROSTHETIST, urgent care, hospital, or [facility]...) When possible be specific @ -no Did you speak to anyone other than the patient for history (EMS, parent, family, police, friend...)? What history was obtained from this source @ -no Did you review nursing and triage notes (agree or disagree)? Why? @ -agree Are old charts reviewed (outside hosp., previous admission, EMS record, old EKG, old radiological studies, urgent care reports/EKG's, [facility] records)? Report findings @ -yes Differential Diagnosis (chest pain, altered mental status, abdominal pain women, abdominal pain men, vaginal bleeding, weakness, fever, dyspnea, syncope, headache, dizziness, GI bleed, back pain, seizure, CVA, palpatations, mental health, musculoskeletal)? @ -prior EKG interpreted by me (3pts min.). @ -no X-rays interpreted by me (1pt min.). @ -no CT interpreted by me (1pt min.). @ -yes Negative for acute disease U/S interpreted by me (1pt. min.). @ -no What testing was considered but not performed or refused? (CT, X-rays, U/S, labs)? Why? @ -none What meds were considered but not given or refused? Why? @ -none Did you discuss the management of the patient with other professionals (professionals i.e. [facility] Rojas, PROSTHETIST, lab, RT, psych nurse, social insurance administrator, airport control operator, teacher, combat information center officer, geriatric case manager)? Give summary @ -no Was smoking cessation discussed for >3mins.? @ -no Were there social determinants of health that impacted care today? How? (Homelessness, low income, unemployed, alcoholism, drug addiction, transpor tation, low edu. Level, literacy, decrease access to med. care, senior care, rehab)? @ -none Was there de-escalation of care discussed even if they declined (Discuss DNR or withdrawal of care, Hospice)? DNR status @ -no What co-morbidities impacted this encounter? (DM, HTN, Smoking, COPD, CAD, Cancer, CVA, ARF, Chemo, Hep., AIDS, mental health diagnosis, sleep apnea, morbid obesity)? @ -none Was patient admitted / discharged? Hospital course, mention meds given and route, prescriptions, significant lab abnormalities, going to OR and other pertinent info. @ - 73 male to ER with weakness and abdominal pain. Weakness and abdominal pain that improved here in the ER with some hydration and symptom management. Patient feels improved and can be discharged home Discharge Was critical care preformed (if so, how long)? @ -no Undiagnosed new problem with uncertain prognosis? @ -no Drug Therapy requiring intensive monitoring for toxicity (Heparin, Nitro, Insulin, Cardizem)? @ -no Were any procedures done? @ -no Diagnosis/symptom? @ -Abdominal pain and weakness Acute, or Chronic, or Acute on Chronic? @ -Acute Uncomplicated (without systemic symptoms) or Complicated (systemic symptoms)? @ -Complicated Side effects of treatment? @ -no Exacerbation, Progression, or Severe Exacerbation? @ -exacerbation Poses a threat to life or bodily function? How? (Chest pain, [place], [place], pneumonia, PE, COPD, DKA, ARF, appy, cholecystitis, CVA, Diverticulitis, Homicidal, Suicidal, threat to staff... and all critical care pts) @ -yes extremes of age Reevaluation #5: Differential Abdominal Pain Men: Appendicitis, cholecystitis, diverticulosis, ischemic bowel, pancreatitis, hepatitis, UTI, gastroenteritis, AAA, incarcerated hernia, bowel obstruction, constipation, inflammatory bowel, hepatitis, peptic ulcer disease, splenic infarction, perforated viscus, testicular torsion, this is not meant to be an all-inclusive list Medical Decision Making - Medical Decision Making 73 male to ER with weakness and abdominal pain. Weakness and abdominal pain that improved here in the ER with some hydration and symptom management. Patient feels improved and can be discharged home - Lab Data Result diagrams: 10/25/23 13:07 10/25/23 13:21 Lab Results 10/25/23 10/25/23 10/25/23 Range/Units 13:07 13:07 13:07 WBC 14.2 H (3.8-10.6) k/uL RBC 4.83 (4.30-5.90) m/uL Hgb 14.0 (13.0-17.5) gm/dL Hct 42.7 (39.0-53.0) % MCV 88.3 (80.0-100.0) fL MCH 28.9 (25.0-35.0) pg MCHC 32.7 (31.0-37.0) g/dL RDW 14.7 (11.5-15.5) % Plt Count 235 (150-450) k/uL MPV 7.5 Neutrophils % 84 % Lymphocytes % 8 % Monocytes % 6 % Eosinophils % 1 % Basophils % 0 % Neutrophils # 11.9 H (1.3-7.7) k/uL Lymphocytes # 1.1 (1.0-4.8) k/uL Monocytes # 0.8 (0-1.0) k/uL Eosinophils # 0.2 (0-0.7) k/uL Basophils # 0.0 (0-0.2) k/uL PT 11.4 (10.0-12.5) sec INR 1.0 (<1.2) APTT 24.8 (22.0-30.0) sec Sodium (137-145) mmol/L Potassium (3.5-5.1) mmol/L Chloride (98-107) mmol/L Carbon Dioxide (22-30) mmol/L Anion Gap mmol/L BUN (9-20) mg/dL Creatinine (0.66-1.25) mg/dL Est GFR (CKD-EPI)AfAm (>60 ml/min/1.73 sqM) Est GFR (CKD-EPI)NonAf (>60 ml/min/1.73 sqM) Glucose (74-99) mg/dL Plasma Lactic Acid Constantin 1.0 (0.7-2.0) mmol/L Calcium (8.4-10.2) mg/dL Total Bilirubin (0.2-1.3) mg/dL AST (17-59) U/L ALT (4-49) U/L Alkaline Phosphatase (38-126) U/L Total Protein (6.3-8.2) g/dL Albumin (3.5-5.0) g/dL Amylase (30-110) U/L Lipase (23-300) U/L 10/25/23 Range/Units 13:21 WBC (3.8-10.6) k/uL RBC (4.30-5.90) m/uL Hgb (13.0-17.5) gm/dL Hct (39.0-53.0) % MCV (80.0-100.0) fL MCH (25.0-35.0) pg MCHC (31.0-37.0) g/dL RDW (11.5-15.5) % Plt Count (150-450) k/uL MPV Neutrophils % % Lymphocytes % % Monocytes % % Eosinophils % % Basophils % % Neutrophils # (1.3-7.7) k/uL Lymphocytes # (1.0-4.8) k/uL Monocytes # (0-1.0) k/uL Eosinophils # (0-0.7) k/uL Basophils # (0-0.2) k/uL PT (10.0-12.5) sec INR (<1.2) APTT (22.0-30.0) sec Sodium 136 L (137-145) mmol/L Potassium 4.1 (3.5-5.1) mmol/L Chloride 104 (98-107) mmol/L Carbon Dioxide 28 (22-30) mmol/L Anion Gap 4 mmol/L BUN 16 (9-20) mg/dL Creatinine 0.59 L (0.66-1.25) mg/dL Est GFR (CKD-EPI)AfAm >90 (>60 ml/min/1.73 sqM) Est GFR (CKD-EPI)NonAf >90 (>60 ml/min/1.73 sqM) Glucose 106 H (74-99) mg/dL Plasma Lactic Acid Constantin (0.7-2.0) mmol/L Calcium 9.0 (8.4-10.2) mg/dL Total Bilirubin 1.0 (0.2-1.3) mg/dL AST 26 (17-59) U/L ALT 18 (4-49) U/L Alkaline Phosphatase 107 (38-126) U/L Total Protein 6.4 (6.3-8.2) g/dL Albumin 3.1 L (3.5-5.0) g/dL Amylase 40 (30-110) U/L Lipase 34 (23-300) U/L - Radiology Data Radiology results: report reviewed (CT brain CT abdomen pelvis negative for acute disease), image reviewed Disposition Clinical Impression: Weakness, Abdominal pain Disposition: HOME SELF-CARE Condition: Good Instructions (If sedation given, give patient instructions): Abdominal Pain (ED) Is patient prescribed a controlled substance at d/c from ED?: No Referrals: Ana Villatoro MD [Primary Care Provider] - 1-2 days Time of Disposition: 20:00
[2023-10-25 14:22] VITALS: RESP 18
[2023-10-25 14:38] LABS: ALT 18 U/L (4-49); AST 26 U/L (17-59); African American GFR (CKD) >90 (>60 ml/min/1.73 sqM); Albumin 3.1 g/dL (3.5-5.0); Alkaline Phosphatase 107 U/L (38-126); Amylase 40 U/L (30-110); Anion Gap 4 mmol/L; Blood Urea Nitrogen 16 mg/dL (9-20); Carbon Dioxide 28 mmol/L (22-30); Chloride 104 mmol/L (98-107); Glucose 106 mg/dL (74-99); Lipase 34 U/L (23-300); Non-African American GFR(CKD) >90 (>60 ml/min/1.73 sqM); Potassium 4.1 mmol/L (3.5-5.1); Sodium 136 mmol/L (137-145); Total Protein 6.4 g/dL (6.3-8.2)
[2023-10-25] MEDS: LORazepam 2 MG/ML INJ IV STA (14:56)
[2023-10-25] MEDS: diphenhydrAMINE 50 MG/ML 1 ML VIAL IVP STA (16:20)
[2023-10-25] MEDS: HYDROmorphone 1 MG/ML 1 ML SYRINGE IVP STA (17:19)
--- NOTE | 2023-10-25 19:28 | CT ---
EXAMINATION TYPE: CT abdomen pelvis w con DATE OF EXAM: 10/25/2023 COMPARISON: 10/03/2023 INDICATION: abdominal pain, ams DLP: 1295.2 mGycm, Automated exposure control for dose reduction was used. CONTRAST: 100 ml mL of Isovue 300. Study performed without Oral Contrast TECHNIQUE: Axial images were obtained from above the diaphragm to the pubic rami in the axial plane a t 5 mm thick sections. Reconstructed images are reviewed on the computer in the coronal plane. FINDINGS: Limited CT sections are obtained the lung bases. There is a 0.4 cm nodule in the periphery of the le ft anterior lateral lung base. Series 201 and 1. Some streak opacities are within the bilateral poste rior lung bases likely streak atelectasis. Some minimal right pleural effusion is present.. CT ABDOMEN: Liver: There is extensive hypodensities scattered throughout the bilateral lobes of liver compatible with metastatic lesions. The largest in the superior lateral right lobe measures 4.6 cm. Spleen: Normal Pancreas: Atrophic Adrenal glands: The adrenal glands are normal. Gallbladder: Distended Kidneys: No masses are evident. No hydronephrosis is present. No cysts are present. Delayed images were obtained through the kidneys, which remain unremarkable. Aorta: Vascular calcification is within the aorta. Inferior vena cava: Normal. Lymph nodes: There may be an enlarged 2.0 cm lymph node adjacent to the inferior vena cava. There is an additional margin between the aorta and cava measuring 2.2 cm. Image 54. Additional shotty lymphad enopathy in the periaortic region. Multiple enlarged mesenteric lymph nodes are present anteriorly. A s made there may be a large right inguinal lymph node. Smaller inguinal hernia is present. Digital Director c anal at iliac chain adenopathy is not identified. CT PELVIS: Small amount of fluid is in the right paracolic gutter. No discrete abnormalities identified within the noncontrast loops of bowel. Suspicious dilated bowel are not identified. There is colon. A large fecal bolus descending colon region. Descending colon is decompressed air-filled transverse colon is noted. The proximal transverse colon at the hepatic flexu re is diffusely thickened. Underlying colon cancer should be considered. This area was present previo usly. Appendix: Normal as visualized. Urinary bladder: Normal. Genitourinary structures: Prostate appears normal. Osseous structures: No suspicious lytic or sclerotic lesions. IMPRESSION: 1. Multiple hypodense masses within the left and right lobes of liver highly suggestive for metastat ic disease. 2. Multiple enlarged mesenteric and periaortic adenopathy suspicious for metastatic disease. 3. Thickening of the proximal transverse colon hepatic flexure region. Underlying colon cancer should be considered. 4. Punctate nodule within the right lung base. A metastatic lesion is not excluded. 5. No definite obstruction is identified. Some change may be present proximal to the suspected colon cancer at the hepatic flexure, mild obstruction could be considered at this level.
--- NOTE | 2023-10-25 19:31 | CT ---
EXAMINATION TYPE: CT brain wo con DATE OF EXAM: 10/25/2023 COMPARISON: None INDICATION: ams DLP: 1125.4 mGycm, Automated exposure control for dose reduction was used. CONTRAST: None CT of the brain is performed utilizing 3 mm thick sections through the posterior fossa and 3 mm thick sections through the remaining calvarium. Study is performed within 24 hours of arrival to the hosp ital. No abnormal hyperdensity is present to suggest an acute intracranial hemorrhage. No mass lesion is evident. No acute infarcts are evident. Ventricles are mildly prominent. No temporal horn dilatation is evident. No hydrocephalus is evident. Sulci appearance is more typical for the patient's age . Paranasal sinuses and mastoid air cells within the [id number] are clear. IMPRESSION: 1. No acute intracranial process. 2. Mild age-related atrophy is present. 3. Follow-up MRI can be performed as clinically indicated.
[2023-10-25 21:03] VITALS: BP 163/90; PULSE 65
== END 2023-10-25 21:07 | disposition home or self-care (01) ==
LOC: EC 11:34
DX: R53.1 Weakness (principal); R10.9 Unspecified abdominal pain
CPT/HCPCS: 36415; 80053; 82150; 83605; 83690; 85025; 85610; 85730; 70450; 74177; 99284; 96374; 96375 ×4; 96361 ×2; J2060; J1200; J2405; J1170; C9113; Q9967